=== PATIENT | male | born 1950 | race Caucasian/White ===

== ENCOUNTER 2023-09-05 09:40 | Outpatient (AMB) | payer MEDICARE, SELFPAY ==
[2023-09-05 09:46] VITALS: BP 140/80; PULSE 67; O2SAT 98; BMI 22.7
--- NOTE | 2023-09-05 09:46 | MHC.PC.OV ---
Vital Signs 09/05/23 09:46 Height 6 ft Weight 167 lb 6 oz BMI 22.7 BP 140/80 H Blood Pressure Location Lt brachial Position Sitting Pulse 67 Pulse Source Pulse Oximeter Pulse Oximetry (%) 98 Oxygen Delivery Method Room Air Intake Visit Reasons: HTN, hyperlipidemia Automotive Consultant Required: No Accompanied by: Self / Same As Patient Allergies terbinafine [Lamisil] Allergy (Unknown, Verified 09/05/23 10:22) unknown Medication List - Last Reconciled 09/05/23 by Efrain Hernandez MD blood pressure monitor As directed cholecalciferol (vitamin D3) 50 mcg PO DAILY multivitamin (Daily Multi-Vitamin tablet) 1 tab PO DAILY phytosterol-pantethine 300-100 mg (CholestOff Complete) caps PO Tobacco use date assessed: 09/05/23 Fall risk assessment: No Falls in past year Last assessed Fall Risk: 09/05/23 Dental Screening Dental Screen Date: 09/05/23 Did you have a dental visit in the last 12 months?: Yes Did you have a dental problem in the last 6 months where you did not have access to dental care?: No Was dental information given to patient?: Patient has dentist HPI HTN, hyperlipidemia HPI Details Patient comes in for his follow up visit States that he feels okay Sprained his right knee a few months ago but states that his knee is okay now - was following up with [facility] when he was having issues with his knee He currently denies any headaches or dizziness Denies any chest pains, no SOB No nausea/vomiting, no abdominal pain No change in bowel habits noted Had his follow up labs done at [facility] a few weeks ago - to discuss his results [facility] Medical History Urinary frequency Vitamin D deficiency GERD with esophagitis Pure hypercholesterolemia Normal colonoscopy Lumbar degenerative disc disease Hyperlipidemia Surgical History S/P right knee arthroscopy (~11/20/20) S/P medial meniscus repair of right knee Status post lumbar surgery Family History Other Family history non-contributory Social History Housing: House Alcohol intake: former Patient Tobacco Use Status: Former Tobacco user Tobacco use type: Cigarette e-Cigarette/Vaping Use: Never Used Second Hand Smoke Exposure: No Current occupational status: retired Cognitive needs: No Hearing needs: No Vision needs: No Questionnaire PHQ-9 Over the last 2 weeks, how often have you been bothered by any of the following problems? 1. Little interest or pleasure in doing things: not at all 2. Feeling down, depressed, or hopeless: not at all 3. Trouble falling or staying asleep, or sleeping too much: not at all 4. Feeling tired or having little energy: not at all 5. Poor appetite or overeating: not at all 6. Feeling bad about yourself - or that you are a failure or have let yourself or your family down: not at all 7. Trouble concentrating on things, such as reading the newspaper or watching television: not at all 8. Moving or speaking so slowly that other people could have noticed. Or the opposite - being so fidgety or restless that you have been moving around a lot more than usual: not at all 9. Thoughts that you would be better off or of hurting yourself in some way: not at all Total score: 0 Depression Screening Interpretation: Negative Depression Screening Done: Yes 72973 - PHQ-9 Billing: Yes Source: Developed by Drs. Anoop Koch, Nely Cm, Lucien Tyson and colleagues, with an educational riley from [employer]. Thrive Questionnaire Date Thrive assessed: 09/05/23 I am a: Patient What is your living situation today?: I have a steady place to live Within the past 12 months, did the food you bought not last and you didn't have the money to get more?: Never true Within the past 12 months, did you worry whether your food would run out before you got money to buy more?: Never true Do you have trouble paying for medicines?: No Do you have trouble getting transportation to medical appointments?: No Do you have trouble paying your heating and electricity bill?: No Do you have trouble taking care of your child, family member or friend?: No Do you have trouble with day-to-day activities such as bathing, preparing meals, shopping, managing finances, etc.?: No Are you currently unemployed and looking for a job?: No Are you interested in more education?: No Please select the resources that you would like help with: None Currently or been in a relationship where the following occur: no concerns reported AUDIT C Alcohol Use Questionnaire (AUDIT-C) 1. How often do you have a drink containing alcohol?: Never 3. How often do you have six or more drinks on one occasion?: Never Total Score: 0 Score Reviewed/Action Taken: Yes BACILIO-7 AMB Questionnaire BACILIO-7 Date BACILIO - 7 assessed: 09/05/23 Feeling nervous, anxious, or on edge: 0 = Not at all Not being able to stop or control worryin = Not at all Worrying too much about different things: 0 = Not at all Trouble relaxin = Not at all Being so restless that it is hard to sit still: 0 = Not at all Becoming easily annoyed or irritable: 0 = Not at all Feeling afraid as if something awful might happen: 0 = Not at all Total BACILIO-7 score (0-4 normal; 5-9 mild; 10-14 moderate; 15-21 severe): 0 Source: Developed by Drs. Anoop Koch, Nely Cm, Lucien Tyson and colleagues, with an educational riley from [employer]. Review of Systems Const Denies chills, Denies fatigue, Denies fever(s) and Denies headache(s) ENT Denies dysphagia, Denies dizziness, Denies otalgia, Denies headache(s), Denies neck pain, Denies odynophagia and Denies sore throat Card Denies chest pain, Denies rapid heart rate, Denies irregular heart rhythm, Denies palpitations and Denies dyspnea Resp Denies chest congestion, Denies cough, Denies dyspnea and Denies wheezing GI Denies abdominal pain, Denies constipation, Denies dysphagia, Denies heartburn, Denies diarrhea, Denies nausea, Denies odynophagia and Denies vomiting Denies hematuria, Denies difficulty urinating, Denies dysuria, Denies urinary frequency and Denies urinary urgency Musc Denies back pain, Denies arthralgias and Denies neck pain Skin/Breast Denies rash Neuro Denies dizziness, Denies headache(s) and Denies paresthesias Endo Denies fatigue and Denies palpitations Aller/Immun Denies wheezing Physical exam (Primary Care) Vital Signs: Last Vital Signs Pulse 67 09/05/23 09:46 BP 140/80 H 09/05/23 09:46 Pulse Ox 98 09/05/23 09:46 Oxygen Delivery Method Room Air 09/05/23 09:46 BMI result Body Mass Index 22.7 Tobacco/Smoking Status: Tobacco use Status Tobacco use date assessed 09/05/23 09/05/23 09:51 Patient Tobacco Use Status Former Tobacco user 09/05/23 09:51 Tobacco use type Cigarette 09/05/23 09:51 e-Cigarette/Vaping Use Never Used 09/05/23 09:51 PHQ-9: PHQ-9 Score PHQ-9: Total score 0 09/05/23 10:23 Depression Screening Interpretation: Negative Thrive Assessment: Date of Thrive Assessment Date Thrive assessed 09/05/23 09/05/23 09:51 Currently or been in a relationship where the following occur: no concerns reported Const General: no acute distress and alert HENMT Ears: TM's normal bilaterally and EAC's normal Throat: Yes posterior oropharynx normal and Yes tonsils normal (no TP congestion) Neck Neck: Yes no lymphadenopathy and Yes supple Thyroid: Thyroid normal Resp Auscultation: clear to auscultation bilaterally, no rales and no wheezes Cardio Rate: regular rate Rhythm: regular rhythm Heart sounds: no murmurs GI Palpation (GI): Soft to palpation and nontender Auscultation: normal bowel sounds General: Yes no CVA tenderness Back/Spine/Pelvis Back: no CVA tenderness Thoracic/Lumbar Spine: thoracic and lumbar spine normal to inspection Skin Rashes: no rashes Extrem General: Yes no clubbing, cyanosis or edema Office Procedures Flu Questionnaire Does the patient have a severe egg allergy?: No Immunizations flu vacc [id number] 6mos up(PF) 60 mcg(15 mcgx4)/0.5 mL IM syringe Performing Provider: Efrain Hernandez MD [facility] Documented (not given) by: Yobani Recinos on 09/05/23 10:34 Reason Not Given: Not Given Assessment and Plan Assessment & Plan (1) Pure hypercholesterolemia: Code(s): E78.00 - Pure hypercholesterolemia, unspecified Plan: Results of his labs done at [facility] a few weeks ago reviewed and discussed with patient Is advised that his cholesterol numbers have improved significantly from previous with diet modification Reinforced low cholesterol diet Patient also scored [address] done a few months ago Will have him recheck his labs and fasting lipids in 6 months for follow up (2) Elevated blood pressure reading: Code(s): R03.0 - Elevated blood-pressure reading, without diagnosis of hypertension Plan: Reinforced low sodium diet - goal is systolic BP of at least 120 to 130 mm or less States that his blood pressure has been running much lower since he quit drinking coffee completely a few weeks ago Is instructed to continue monitoring his blood pressure regularly (3) Vitamin D deficiency: Code(s): E55.9 - Vitamin D deficiency, unspecified Plan: Is advised that his Vitamin D level is low on his recent labs - patient admits that he does forget to take his Vitamin D at times Continue Vitamin D3 2000 units QD Will recheck his Vitamin D level in 6 months for follow up (4) GERD with esophagitis: Code(s): K21.00 - Gastro-esophageal reflux disease with esophagitis, without bleeding Qualifiers: Esophagitis bleeding: without hemorrhage Qualified Code(s): K21.00 - Gastro-esophageal reflux disease with esophagitis, without bleeding Plan: Dietary restrictions reinforced Plan To return in 6 months for his annual physical examination Orders: Orders UA CC w/rflx Micro + Cult 6 Months R30.0 - Dysuria Influenza [id number] Immunization Today Z23 - Encounter for immunization Complete Blood Count Auto Diff 6 Months I10 - Essential (primary) hypertension Comprehensive [place]. Panel Fast 6 Months E78.00 - Pure hypercholesterolemia, unspecified Lipid Panel 6 Months E78.00 - Pure hypercholesterolemia, unspecified TSH reflex Free T4 6 Months E78.00 - Pure hypercholesterolemia, unspecified Vitamin D 25-OH Total 6 Months E55.9 - Vitamin D deficiency, unspecified Prostate Specific Antigen Scr 6 Months Z00.00 - Encounter for general adult medical examination without abnormal findings Coding Level of Care Code Est Pt Level 4 (22591) Diagnoses Pure hypercholesterolemia E78.00 Elevated blood pressure reading R03.0 Vitamin D deficiency E55.9 Gastroesophageal reflux disease with esophagitis without hemorrhage K21.00 Esophagitis bleeding: without hemorrhage
== END 2023-09-05 11:09 | disposition home or self-care (01) ==
PROVIDERS: PCP Internal Medicine; Visit Provider Internal Medicine
DX: E78.00 Pure hypercholesterolemia, unspecified (principal); R03.0 Elevated blood-pressure reading, without diagnosis of hypertension; E55.9 Vitamin D deficiency, unspecified; K21.00 Gastro-esophageal reflux disease with esophagitis, without bleeding
CPT/HCPCS: 99214

== ENCOUNTER 2024-01-04 10:17 | Outpatient (AMB) | payer MEDICARE, SELFPAY ==
--- NOTE | 2024-01-04 10:33 | MHC.PC.OV ---
Vital Signs 01/04/24 10:34 Height 6 ft Weight 170 lb 2 oz BMI 23.1 BP 140/100 H Blood Pressure Location Lt brachial Position Sitting Pulse 57 Pulse Source Pulse Oximeter Pulse Oximetry (%) 98 Oxygen Delivery Method Room Air Intake Visit Reasons: pe Chief Recordist Required: No Accompanied by: Self / Same As Patient Allergies terbinafine [Lamisil] Allergy (Unknown, Verified 01/04/24 11:23) unknown Medication List - Last Reconciled 01/04/24 by Efrain Hernandez MD blood pressure monitor As directed cholecalciferol (vitamin D3) 50 mcg PO DAILY multivitamin (Daily Multi-Vitamin tablet) 1 tab PO DAILY phytosterol-pantethine 300-100 mg (CholestOff Complete) 1 cap PO DAILY Tobacco use date assessed: 01/04/24 Fall risk assessment: 1 Fall in past year Last assessed Fall Risk: 01/04/24 Dental Screening Dental Screen Date: 01/04/24 Did you have a dental visit in the last 12 months?: Yes Did you have a dental problem in the last 6 months where you did not have access to dental care?: No Was dental information given to patient?: Patient has dentist HPI pe HPI Details Patient comes in today for his annual physical examination States that he feels okay except for his right shoulder, which has been bothering him (pain) for a while now Recalls that he fell onto his shoulder back on 11/03/2023 when someone ran into him on skates and this is when his shoulder started hurting He denies any headaches or dizziness Denies any chest pains, no SOB No nausea/vomiting, no abdominal pain No change in bowel habits noted He denies any acute urinary symptoms States that his systolic BP usually runs ~130 mm at home He was not able to get his previously ordered follow up labs done yet - states that he will try to get these done JAJA He is up-to-date with his colon cancer screening - will be due for repeat colonoscopy in a couple of years (2025) PFSH Medical History Urinary frequency Vitamin D deficiency GERD with esophagitis Pure hypercholesterolemia Normal colonoscopy Lumbar degenerative disc disease Hyperlipidemia Surgical History S/P right knee arthroscopy (~12/31/20) S/P medial meniscus repair of right knee Status post lumbar surgery Family History Other Family history non-contributory Social History Housing: House Alcohol intake: former Patient Tobacco Use Status: Former Tobacco user Tobacco use type: Cigarette e-Cigarette/Vaping Use: Never Used Second Hand Smoke Exposure: No Current occupational status: retired Cognitive needs: No Hearing needs: No Vision needs: No Questionnaire PHQ-9 Over the last 2 weeks, how often have you been bothered by any of the following problems? 1. Little interest or pleasure in doing things: not at all 2. Feeling down, depressed, or hopeless: not at all 3. Trouble falling or staying asleep, or sleeping too much: not at all 4. Feeling tired or having little energy: not at all 5. Poor appetite or overeating: not at all 6. Feeling bad about yourself - or that you are a failure or have let yourself or your family down: not at all 7. Trouble concentrating on things, such as reading the newspaper or watching television: not at all 8. Moving or speaking so slowly that other people could have noticed. Or the opposite - being so fidgety or restless that you have been moving around a lot more than usual: not at all 9. Thoughts that you would be better off or of hurting yourself in some way: not at all Total score: 0 Depression Screening Interpretation: Negative Depression Screening Done: Yes 86519 - PHQ-9 Billing: Yes Source: Developed by Drs. Anoop Koch, Nely Cm, Lucien Tyson and colleagues, with an educational riley from [employer]. Thrive Questionnaire Date Thrive assessed: 01/04/24 I am a: Patient What is your living situation today?: I have a steady place to live Within the past 12 months, did the food you bought not last and you didn't have the money to get more?: Never true Within the past 12 months, did you worry whether your food would run out before you got money to buy more?: Never true Do you have trouble paying for medicines?: No Do you have trouble getting transportation to medical appointments?: No Do you have trouble paying your heating and electricity bill?: No Do you have trouble taking care of your child, family member or friend?: No Do you have trouble with day-to-day activities such as bathing, preparing meals, shopping, managing finances, etc.?: No Are you currently unemployed and looking for a job?: No Are you interested in more education?: No Please select the resources that you would like help with: None Currently or been in a relationship where the following occur: no concerns reported THRIVE Score: 0 AUDIT C Alcohol Use Questionnaire (AUDIT-C) 1. How often do you have a drink containing alcohol?: Never 3. How often do you have six or more drinks on one occasion?: Never Total Score: 0 Score Reviewed/Action Taken: Yes BACILIO-7 AMB Questionnaire BACILIO-7 Date BACILIO - 7 assessed: 01/04/24 Feeling nervous, anxious, or on edge: 0 = Not at all Not being able to stop or control worryin = Not at all Worrying too much about different things: 0 = Not at all Trouble relaxin = Not at all Being so restless that it is hard to sit still: 0 = Not at all Becoming easily annoyed or irritable: 0 = Not at all Feeling afraid as if something awful might happen: 0 = Not at all Total BACILIO-7 score (0-4 normal; 5-9 mild; 10-14 moderate; 15-21 severe): 0 Source: Developed by Drs. Anoop Koch, Nely Cm, Lucien Tyson and colleagues, with an educational riley from [employer]. Review of Systems Const Denies chills, Denies fatigue, Denies fever(s), Denies headache(s), Denies malaise and Denies weakness Eyes Denies blurry vision, Denies change in vision, Denies irritation and Denies itchy eyes ENT Denies dysphagia, Denies dizziness, Denies otalgia, Denies headache(s), Denies nasal congestion, Denies neck pain, Denies odynophagia and Denies sore throat Card Denies chest pain, Denies rapid heart rate, Denies irregular heart rhythm, Denies palpitations and Denies dyspnea Resp Denies chest congestion, Denies cough, Denies dyspnea and Denies wheezing GI Denies abdominal pain, Denies bloating, Denies constipation, Denies dysphagia, Denies heartburn, Denies diarrhea, Denies nausea, Denies odynophagia and Denies vomiting Denies hematuria, Denies difficulty urinating, Denies dysuria, Denies urinary frequency and Denies urinary urgency Musc Denies back pain, Reports arthralgias (right shoulder), Denies joint swelling, Denies muscle weakness and Denies neck pain Skin/Breast Denies change in pigmentation, Denies lesions, Denies rash and Denies unusual bruising Neuro Denies dizziness, Denies headache(s), Denies paresthesias and Denies weakness Endo Denies fatigue and Denies palpitations Aller/Immun Denies itchy eyes and Denies wheezing Physical exam (Primary Care) Vital Signs: Last Vital Signs Pulse 57 01/04/24 10:34 BP 140/100 H 01/04/24 10:34 Pulse Ox 98 01/04/24 10:34 Oxygen Delivery Method Room Air 01/04/24 10:34 BMI result Body Mass Index 23.1 Tobacco/Smoking Status: Tobacco use Status Tobacco use date assessed 01/04/24 01/04/24 10:39 Patient Tobacco Use Status Former Tobacco user 01/04/24 10:39 Tobacco use type Cigarette 01/04/24 10:39 e-Cigarette/Vaping Use Never Used 01/04/24 10:39 PHQ-9: PHQ-9 Score PHQ-9: Total score 0 01/04/24 11:11 Depression Screening Interpretation: Negative Thrive Assessment: Date of Thrive Assessment Date Thrive assessed 01/04/24 01/04/24 10:39 Currently or been in a relationship where the following occur: no concerns reported Const General: no acute distress, alert and awake Orientation/consciousness: patient oriented x3 HENMT Head: Yes normocephalic and Yes atraumatic Ears: external ears normal, TM's normal bilaterally and EAC's normal General nose exam: No nasal discharge present Face and sinus: Yes normal facial exam and Yes sinuses nontender Teeth and gingiva: dentition normal Throat: Yes posterior oropharynx normal and Yes tonsils normal (no TP congestion) Eyes Eyelids: Yes eyelids normal Conjunctivae: conjunctivae normal Pupils: Equal, round and reactive pupils present EOM: EOMs intact bilaterally Neck Neck: Yes no lymphadenopathy and Yes supple Thyroid: Thyroid normal Resp Auscultation: clear to auscultation bilaterally, no rales and no wheezes Cardio Rate: regular rate Rhythm: regular rhythm Heart sounds: no murmurs GI Palpation (GI): Soft to palpation, nontender and No hepatosplenomegaly present Auscultation: normal bowel sounds General: Yes no CVA tenderness Back/Spine/Pelvis Back: no CVA tenderness Thoracic/Lumbar Spine: thoracic and lumbar spine normal to inspection Skin Lesions: no lesions Rashes: no rashes Neuro General: patient oriented x3, moves all extremities, no focal motor deficits and CN's II-XI intact bilaterally Cranial nerves: Yes Equal, round and reactive pupils present Cognition (Neuro): normal cognition Gait exam (Neuro): Normal gait present Extrem General: Yes no clubbing, cyanosis or edema Assessment and Plan Assessment & Plan (1) Annual physical exam: Code(s): Z00.00 - Encounter for general adult medical examination without abnormal findings Plan: Check labs [facility] - labs were previously ordered and patient states that he still has his printed orders and will get them done at [facility] labs [facility] (2) Pure hypercholesterolemia: Code(s): E78.00 - Pure hypercholesterolemia, unspecified Plan: His previous cholesterol numbers have improved significantly with diet modification Will have him recheck his labs and fasting lipids [facility] for follow up Reinforced low cholesterol diet Patient scored [address] done last year (3) Elevated blood pressure reading: Code(s): R03.0 - Elevated blood-pressure reading, without diagnosis of hypertension Plan: Reinforced low sodium diet - goal is systolic BP of at least 120 to 130 mm or less States that his blood pressure has been running much lower since he quit drinking coffee completely a few weeks ago He is reminded to continue monitoring his blood pressure regularly (4) Vitamin D deficiency: Code(s): E55.9 - Vitamin D deficiency, unspecified Plan: Continue Vitamin D3 2000 units QD Will recheck his Vitamin D level [facility] for follow up (5) GERD with esophagitis: Code(s): K21.00 - Gastro-esophageal reflux disease with esophagitis, without bleeding Qualifiers: Esophagitis bleeding: without hemorrhage Qualified Code(s): K21.00 - Gastro-esophageal reflux disease with esophagitis, without bleeding Plan: Dietary restrictions reinforced (6) Right shoulder pain: Code(s): M25.511 - Pain in right shoulder Qualifiers: Chronicity: unspecified Qualified Code(s): M25.511 - Pain in right shoulder Plan: He is S/P right shoulder surgery with [facility] Follow up with [facility] as scheduled Plan Follow up in 6 months Coding Level of Care Code Est Pt Prev Care >65y(57304) Diagnoses Annual physical exam Z00.00 Pure hypercholesterolemia E78.00 Elevated blood pressure reading R03.0 Vitamin D deficiency E55.9 Gastroesophageal reflux disease with esophagitis without hemorrhage K21.00 Esophagitis bleeding: without hemorrhage Right shoulder pain, unspecified chronicity M25.511 Chronicity: unspecified
[2024-01-04 10:34] VITALS: BP 140/100; PULSE 57; O2SAT 98; BMI 23.1
== END 2024-01-04 11:27 | disposition home or self-care (01) ==
PROVIDERS: PCP Internal Medicine; Visit Provider Internal Medicine
DX: Z00.00 Encounter for general adult medical examination without abnormal findings (principal); E78.00 Pure hypercholesterolemia, unspecified; R03.0 Elevated blood-pressure reading, without diagnosis of hypertension; E55.9 Vitamin D deficiency, unspecified; K21.00 Gastro-esophageal reflux disease with esophagitis, without bleeding; M25.511 Pain in right shoulder
CPT/HCPCS: 99397

== ENCOUNTER 2024-10-12 15:23 | Outpatient (AMB) | payer MEDICARE, SELFPAY ==
--- NOTE | 2024-10-12 15:28 | A.OFFPC_ITS ---
Vital Signs 10/12/24 15:29 Height 6 ft Weight 170 lb BMI 23.1 BP 148/74 H Blood Pressure Location Lt brachial Position Sitting Pulse 58 Pulse Source Pulse Oximeter Pulse Oximetry (%) 98 Oxygen Delivery Method Room Air Intake Visit Reasons: follow up Intake Note: Patient is here to follow up on HTN. Commissioner Of Conciliation Required: No Accompanied by: Self / Same As Patient Allergies terbinafine [Lamisil] Allergy (Unknown, Verified 10/12/24 15:50) unknown Medication List - Last Reconciled 10/12/24 by Efrain Hernandez MD blood pressure monitor As directed cholecalciferol (vitamin D3) 50 mcg PO DAILY multivitamin (Daily Multi-Vitamin tablet) 1 tab PO DAILY phytosterol-pantethine 300-100 mg (CholestOff Complete) 1 cap PO DAILY Tobacco use date assessed: 01/04/24 Fall risk assessment: No Falls in past year Last assessed Fall Risk: 10/12/24 Dental Screening Dental Screen Date: 01/04/24 HPI follow up HPI Details Patient comes in today for his follow up visit States that he feels okay He denies any headaches or dizziness Denies any chest pains, no SOB No nausea/vomiting, no abdominal pain No change in bowel habits noted He again brought in his BP log for July 2024 - log shows systolic BP trending higher in the morning but no higher than 145 to 151 mm and her systolic BP in the late afternoon run from 121 to 142 mm He would like to quickly go over the results of his labs done back in January 2024 at [facility] He would also like to get his flu shot today [facility] Medical History (Updated 10/13/24 @ 15:23 by Efrain Hernandez MD) Primary osteoarthritis, right shoulder Urinary frequency Vitamin D deficiency GERD with esophagitis Pure hypercholesterolemia Normal colonoscopy Lumbar degenerative disc disease Hyperlipidemia Surgical History S/P right knee arthroscopy (~11/20/20) S/P medial meniscus repair of right knee Status post lumbar surgery Family History Other Family history non-contributory Social History Housing: House Alcohol intake: former Patient Tobacco Use Status: Former Tobacco user Tobacco use type: Cigarette e-Cigarette/Vaping Use: Never Used Second Hand Smoke Exposure: No service: No Current occupational status: retired Cognitive needs: No Hearing needs: No Vision needs: No Questionnaire PHQ-9 Over the last 2 weeks, how often have you been bothered by any of the following problems? Depression Screening Interpretation: Negative Depression Screening Done: Yes Source: Developed by Nely Dickerson Kurt Kroenke and colleagues, with an educational riley from [employer]. Thrive Questionnaire Date Thrive assessed: 01/04/24 THRIVE Score: 0 BACILIO-7 AMB Questionnaire BACILIO-7 Date BACILIO - 7 assessed: 01/04/24 Source: Developed by Drs. Anoop Koch, Lucien Ewing and colleagues, with an educational riley from [employer]. Review of Systems Const Denies chills, Denies fatigue, Denies fever(s) and Denies headache(s) ENT Denies dysphagia, Denies dizziness, Denies otalgia, Denies headache(s), Denies neck pain, Denies odynophagia and Denies sore throat Card Denies chest pain, Denies irregular heart rhythm, Denies palpitations and Denies dyspnea Resp Denies chest congestion, Denies cough and Denies dyspnea GI Denies abdominal pain, Denies constipation, Denies dysphagia, Denies heartburn, Denies diarrhea, Denies nausea, Denies odynophagia and Denies vomiting Denies difficulty urinating, Denies dysuria and Denies urinary frequency Musc Denies back pain, Reports arthralgias (right shoulder) and Denies neck pain Skin/Breast Denies rash Neuro Denies dizziness, Denies headache(s) and Denies paresthesias Endo Denies fatigue and Denies palpitations Physical exam (Primary Care) Vital Signs: Last Vital Signs Pulse 58 10/12/24 15:29 BP 148/74 H 10/12/24 15:29 Pulse Ox 98 10/12/24 15:29 Oxygen Delivery Method Room Air 10/12/24 15:29 BMI result Body Mass Index 23.1 Tobacco/Smoking Status: Tobacco use Status Tobacco use date assessed 01/04/24 10/12/24 15:33 Patient Tobacco Use Status Former Tobacco user 10/12/24 15:33 Tobacco use type Cigarette 10/12/24 15:33 e-Cigarette/Vaping Use Never Used 10/12/24 15:33 Depression Screening Interpretation: Negative Thrive Assessment: Date of Thrive Assessment Date Thrive assessed 01/04/24 10/12/24 15:33 Const General: no acute distress and alert HENMT Ears: TM's normal bilaterally and EAC's normal Throat: Yes posterior oropharynx normal and Yes tonsils normal (no TP congestion) Neck Neck: Yes no lymphadenopathy and Yes supple Thyroid: Thyroid normal Resp Auscultation: clear to auscultation bilaterally, no rales and no wheezes Cardio Rate: regular rate Rhythm: regular rhythm Heart sounds: no murmurs GI Palpation (GI): Soft to palpation and nontender Auscultation: normal bowel sounds General: Yes no CVA tenderness Back/Spine/Pelvis Back: no CVA tenderness Thoracic/Lumbar Spine: No lumbar spinal tenderness Skin Rashes: no rashes Extrem General: Yes no clubbing, cyanosis or edema Office Procedures Flu Questionnaire Does the patient have a severe egg allergy?: No Does the patient have severe life threatening allergies?: No Does the patient have a fever or illness today?: No Has the patient ever had Guillain-Newberry Syndrome?: No Has the patient ever had any past reaction to a flu shot?: No Immunizations Fluarix Triv [id number] (PF) 45 mcg (15 mcg x 3)/0.5 mL IM syringe Performing Provider: Efrain Hernandez MD [facility]forming [facility] [place] [facility] Administered by: CELESTINA Cintron on 10/12/24 15:42 Dose Route Admin Location Dispensed Lot Number Expiration Date [facility] Archeologist Classical 0.5 mL IM Right Deltoid 0.5 mL [id number] 05/20/25 [id number] Secure Software VIS Given Date VIS Provided VIS Publication Date 10/12/24 Single Vaccine 21 Eligibility Eligibility Date Funding Source Not [facility] [employer] Eligible 10/12/24 Private Coding Level of Care Code Est Pt Level 4 (71935) Diagnoses Pure hypercholesterolemia E78.00 Elevated blood pressure reading R03.0 Vitamin D deficiency E55.9 Gastroesophageal reflux disease with esophagitis without hemorrhage K21.00 Esophagitis bleeding: without hemorrhage Primary osteoarthritis, right shoulder M19.011 Assessment & Plan Assessment & Plan (1) Pure hypercholesterolemia: Code(s): E78.00 - Pure hypercholesterolemia, unspecified Category: Medical Plan: Results of his labs done at [facility] back in December 2023 reviewed and discussed with patient Reinforced low cholesterol diet Patient scored [address] done last year, which is low Will have him recheck his labs and fasting lipids in December 2024 BEFORE he returns for his annual physical examination (2) Elevated blood pressure reading: Code(s): R03.0 - Elevated blood-pressure reading, without diagnosis of hypertension Category: Medical Plan: Reinforced low sodium diet - goal is systolic BP of at least 130 to 140 mm or less His blood pressure readings at home mostly trend higher in the morning but his systolic BP does not go any higher than 145 to 151 mm and in the late afternoon runs generally from 121 to 142 mm He is reminded to continue monitoring his blood pressure regularly for now (3) Vitamin D deficiency: Code(s): E55.9 - Vitamin D deficiency, unspecified Category: Medical Plan: Continue Vitamin D3 2000 units QD (4) GERD with esophagitis: Code(s): K21.00 - Gastro-esophageal reflux disease with esophagitis, without bleeding Category: Medical Qualifiers: Esophagitis bleeding: without hemorrhage Qualified Code(s): K21.00 - Gastro-esophageal reflux disease with esophagitis, without bleeding Plan: Dietary restrictions reinforced (5) Primary osteoarthritis, right shoulder: Code(s): M19.011 - Primary osteoarthritis, right shoulder Category: Medical Plan: S/p arthroscopic shoulder surgery with [facility] earlier this year (2023) Follow up with orthopedics as scheduled Plan As requested, flu vaccine given to patient today To return as scheduled in December 2024 for his annual physical examination Orders: Orders Complete Blood Count Auto Diff 12/22/24 D64.9 - Anemia, unspecified Comprehensive [place]. Panel Fast 12/22/24 E78.00 - Pure hypercholesterolemia, unspecified Lipid Panel 12/22/24 E78.00 - Pure hypercholesterolemia, unspecified Influenza Immunization 10/12/24 Z23 - Encounter for immunization TSH reflex Free T4 12/22/24 E78.00 - Pure hypercholesterolemia, unspecified UA CC w/rflx Micro + Cult 12/22/24 R30.0 - Dysuria Vitamin D 25-OH Total 12/22/24 E55.9 - Vitamin D deficiency, unspecified Prostate Specific Antigen 12/22/24 N40.0 - Benign prostatic hyperplasia without lower urinary tract symptoms
[2024-10-12 15:29] VITALS: BP 148/74; PULSE 58; O2SAT 98; BMI 23.1
== END 2024-10-12 16:01 | disposition home or self-care (01) ==
PROVIDERS: PCP Internal Medicine; Visit Provider Internal Medicine
DX: Z23 Encounter for immunization (principal)

== ENCOUNTER → 2024-10-12 15:23 | Outpatient (BNVA) | payer MEDICARE, SELFPAY | PROVIDERS: PCP Internal Medicine; Visit Provider Internal Medicine | DX: Z23 Encounter for immunization (principal); E78.00 Pure hypercholesterolemia, unspecified; R03.0 Elevated blood-pressure reading, without diagnosis of hypertension; E55.9 Vitamin D deficiency, unspecified; K21.00 Gastro-esophageal reflux disease with esophagitis, without bleeding; M19.011 Primary osteoarthritis, right shoulder | CPT/HCPCS: 90471; 90656; 99212 ==

== ENCOUNTER 2024-12-28 07:43 | Outpatient (REF) | payer MEDICARE, SELFPAY ==
--- OUTSIDE RECORDS SUMMARY | 2024-12-28 07:45 | XMS_ITS | Clinical Summary ---
Author Organization Formerly [facility] Address [address] [place] [address] Care Team Providers Care Sample Mounter Name Role Phone Unavailable Primary Care Provider Unavailabl e Social History Tobacco Use Types Packs/Day Years Used Date Smoking Tobacco: Never Assessed Sex and Gender Information Value Date Recorded Sex Assigned at Not on file Gender Identity Not on file Sexual Orientation Not on file Plan of Treatment Health Maintenance Due Date Last Done Comments Hepatitis C Virus Screening 1950 DTaP/Tdap/Td Vaccines (1 - Tdap) 1970 Pneumococcal Vaccines 50+ (1 of 1 - PCV) 2001 Zoster (Shingles) Vaccine (1 of 2) 2001 COVID-19 Vaccine ( - 2023-2 5 season) 2024 RSV Vaccine 60 years and old er and Patients (1 - 1-dose 75+ series) 2026 Hepatitis B Vaccines Aged Out No long er eligible based on patient's age to complete this topic
[2024-12-28 07:59] LABS: MANUAL DIFF FLAG NO
[2024-12-28 08:22] LABS: Basophils Percent Auto 0.2 % (0-2); Eosinophils Absolute Auto 0.1 X10*3/uL (0.0-0.4); Eosinophils Percent Auto 1.4 % (0-4); Hematocrit 44.1 % (42.0-52.0); Hemoglobin 14.7 g/dl (14.0-18.0); Imm Gran Abs Auto 0.01 X10*3/uL (0.00-0.03); Imm Gran Pct Auto 0.2 % (0.0-0.4); Lymphocytes Absolute Auto 1.4 X10*3/uL (1.2-4.9); Lymphocytes Percent Auto 28.3 % (20-40); Mean Corpuscular HGB Conc 33.3 g/dl (31.0-36.0); Mean Corpuscular Hemoglobin 31.1 pg (27.0-33.0); Mean Corpuscular Volume 93.4 fL (80.0-98.0); Mean Platelet Volume 10.6 fL (9.4-12.4); Monocytes Absolute Auto 0.4 X10*3/uL (0.1-1.2); Monocytes Percent Auto 7.8 % (2-11); Neutrophils Percent Auto 62.1 % (45-73); Platelet Count 241 X10*3/uL (160-400); Red Blood Count 4.72 X10*6/uL (4.60-5.80); Red Cell Distribution Width 13.2 % (11.0-16.0); White Blood Count 4.9 X10*3/uL (4.8-10.8)
[2024-12-28 08:47] LABS: Appearance Urine Clear; Color Urine Yellow; Glucose Urine UA Negative (Negative); Leukocyte Esterase Urine Trace (Negative); Nitrite Urine Negative (Negative); UMIC TRIGGER UACC YES; Urine Blood Negative (Negative); Urine Ketones Trace mg/dL (Negative); Urine Protein Negative (Neg-Trace)
[2024-12-28 08:53] LABS: Bacteria Urine None Seen (None Seen); Hyaline Casts Urine 0-2 /LPF (0-2); RBC Urine 0-2 /HPF (0-2); Squamous Epithelial Cell Urine 0-2 /HPF (0-2); WBC Urine 0-5 /HPF (0-5)
[2024-12-28 09:07] LABS: Alanine Aminotransferase 25 U/L (0-40); Alkaline Phosphatase 98 U/L (39-117); Anion Gap 10 (12-20); Aspartate Amino Transferase 24 U/L (5-37); Bilirubin Total 0.9 mg/dL (0.0-1.0); Blood Urea Nitrogen 13 mg/dL (9-16); Carbon Dioxide 26 mmol/L (22-29); Chloride 107 mmol/L (96-108); Cholesterol 197 mg/dL (<200); Estimated Glomerular Filt Rate > 60; Glucose Fasting 93 mg/dL (60-99); HDL Cholesterol 44 mg/dL (>40); LDL Cholesterol Calculated 129 mg/dL (<100); Potassium 4.4 mmol/L (3.3-5.1); Sodium 139 mmol/L (135-145); Total Protein 6.6 g/dL (6.5-8.0); Triglycerides 121 mg/dL (<150)
[2024-12-28 09:16] LABS: Prostate Specific Antigen Scr 2.52 ng/mL (<0.05-4.0)
[2024-12-28 09:24] LABS: TSH reflex Free T4 1.63 uIU/mL (0.32-4.0); Vitamin D 25-OH Total 23.5 ng/mL (>30)
== END 2024-12-28 07:44 | disposition home or self-care (01) ==
LOC: HO.LAB 07:43
PROVIDERS: PCP Internal Medicine; Visit Provider Internal Medicine
DX: Z00.00 Encounter for general adult medical examination without abnormal findings (principal); I10 Essential (primary) hypertension; E78.00 Pure hypercholesterolemia, unspecified; E55.9 Vitamin D deficiency, unspecified; R30.0 Dysuria; Z12.5 Encounter for screening for malignant neoplasm of prostate
CPT/HCPCS: 36415; 80053; 80061; 81001; 82306; 84153; 84443; 85025

== ENCOUNTER 2025-01-08 13:07 | Outpatient (AMB) | payer MEDICARE, SELFPAY ==
--- NOTE | 2025-01-08 13:12 | MHC.PC.OV ---
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: No Accompanied by: Self / Same As Patient Allergies terbinafine [Lamisil] Allergy (Unknown, Verified 01/08/25 13:36) unknown Medication List - Last Reconciled 01/08/25 by Efrain Hernandez MD blood pressure monitor As directed cholecalciferol (vitamin D3) 50 mcg PO DAILY multivitamin (Daily Multi-Vitamin tablet) 1 tab PO DAILY phytosterol-pantethine 300-100 mg (CholestOff Complete) 1 cap PO DAILY Tobacco use date assessed: 01/08/25 Fall risk assessment: No Falls in past year Last assessed Fall Risk: 01/08/25 Dental Screening Dental Screen Date: 01/08/25 Did you have a dental visit in the last 12 months?: Yes Did you have a dental problem in the last 6 months where you did not have access to dental care?: No Was dental information given to patient?: Patient has dentist HPI annual exam HPI Details Patient comes in today for his annual physical examination States that he feels okay and that he has been very active this past winter skiing and ice skating 5-6 days a week He denies any headaches or dizziness Denies any chest pains, no SOB No nausea/vomiting, no abdominal pain No change in bowel habits noted He denies any acute urinary symptoms Patient used to take Sildenafil PRN but recently heard about [employer] Salguero online and is wondering if it is safe to take He had his follow up labs done a couple of weeks ago - to discuss his results He is up-to-date with his colon cancer screening - he last had his colonoscopy done in 2015 and will be due his repeat colonoscopy next year (2025) [facility] Medical History (Updated 01/14/25 @ 02:35 by Efrain Hernandez MD) Primary osteoarthritis, right shoulder Urinary frequency Vitamin D deficiency GERD with esophagitis Pure hypercholesterolemia Normal colonoscopy Lumbar degenerative disc disease Hyperlipidemia Surgical History (Updated 01/08/25 @ 14:00 by Efrain Hernandez MD) History of colonoscopy S/P right knee arthroscopy (~12/31/20) S/P medial meniscus repair of right knee Status post lumbar surgery Family History Other Family history non-contributory Social History Housing: House Alcohol intake: former Patient Tobacco Use Status: Former Tobacco user Tobacco use type: Cigarette e-Cigarette/Vaping Use: Never Used Second Hand Smoke Exposure: No service: No Current occupational status: retired Cognitive needs: No Hearing needs: No Vision needs: No Questionnaire PHQ-9 Over the last 2 weeks, how often have you been bothered by any of the following problems? 1. Little interest or pleasure in doing things: not at all 2. Feeling down, depressed, or hopeless: not at all 3. Trouble falling or staying asleep, or sleeping too much: not at all 4. Feeling tired or having little energy: not at all 5. Poor appetite or overeating: not at all 6. Feeling bad about yourself - or that you are a failure or have let yourself or your family down: not at all 7. Trouble concentrating on things, such as reading the newspaper or watching television: not at all 8. Moving or speaking so slowly that other people could have noticed. Or the opposite - being so fidgety or restless that you have been moving around a lot more than usual: not at all 9. Thoughts that you would be better off or of hurting yourself in some way: not at all Total score: 0 Depression Screening Interpretation: Negative Depression Screening Done: Yes 29686 - PHQ-9 Billing: Yes Source: Developed by Drs. Anoop Koch, Nely Cm, Lucien Tyson and colleagues, with an educational riley from [employer]. Thrive Questionnaire Date Thrive assessed: 01/08/25 I am a: Patient What is your living situation today?: I have a steady place to live Within the past 12 months, did the food you bought not last and you didn't have the money to get more?: Never true Within the past 12 months, did you worry whether your food would run out before you got money to buy more?: Never true Do you have trouble paying for medicines?: No Do you have trouble getting transportation to medical appointments?: No Do you have trouble paying your heating and electricity bill?: No Do you have trouble taking care of your child, family member or friend?: No Do you have trouble with day-to-day activities such as bathing, preparing meals, shopping, managing finances, etc.?: No Are you currently unemployed and looking for a job?: No Are you interested in more education?: No Please select the resources that you would like help with: None Currently or been in a relationship where the following occur: No concerns reported THRIVE Score: 0 AUDIT C Alcohol Use Questionnaire (AUDIT-C) 1. How often do you have a drink containing alcohol?: Never 3. How often do you have six or more drinks on one occasion?: Never Total Score: 0 Score Reviewed/Action Taken: Yes BACILIO-7 AMB Questionnaire BACILIO-7 Date BACILIO - 7 assessed: 01/08/25 Feeling nervous, anxious, or on edge: 0 = Not at all Not being able to stop or control worryin = Not at all Worrying too much about different things: 0 = Not at all Trouble relaxin = Not at all Being so restless that it is hard to sit still: 0 = Not at all Becoming easily annoyed or irritable: 0 = Not at all Feeling afraid as if something awful might happen: 0 = Not at all Total BACILIO-7 score (0-4 normal; 5-9 mild; 10-14 moderate; 15-21 severe): 0 Source: Developed by Drs. Anoop Koch, Nely Cm, Lucien Tyson and colleagues, with an educational riley from [employer]. Review of Systems Const Denies chills, Denies fatigue, Denies fever(s), Denies headache(s), Denies malaise and Denies weakness Eyes Denies blurry vision, Denies change in vision, Denies irritation and Denies itchy eyes ENT Denies dysphagia, Denies dizziness, Denies otalgia, Denies headache(s), Denies nasal congestion, Denies neck pain, Denies odynophagia and Denies sore throat Card Denies chest pain, Denies rapid heart rate, Denies irregular heart rhythm, Denies palpitations and Denies dyspnea Resp Denies chest congestion, Denies cough, Denies dyspnea and Denies wheezing GI Denies abdominal pain, Denies bloating, Denies constipation, Denies dysphagia, Denies heartburn, Denies diarrhea, Denies nausea, Denies odynophagia and Denies vomiting Denies hematuria, Denies difficulty urinating, Denies dysuria, Denies urinary frequency and Denies urinary urgency Musc Denies back pain, Denies arthralgias, Denies joint swelling, Denies muscle weakness and Denies neck pain Skin/Breast Denies change in pigmentation, Denies lesions, Denies rash and Denies unusual bruising Neuro Denies dizziness, Denies headache(s), Denies paresthesias and Denies weakness Endo Denies fatigue and Denies palpitations Aller/Immun Denies itchy eyes and Denies wheezing Physical exam (Primary Care) Vital Signs: Last Vital Signs Pulse 63 01/08/25 13:13 BP 106/64 01/08/25 13:13 Pulse Ox 98 01/08/25 13:13 Oxygen Delivery Method Room Air 01/08/25 13:13 BMI result Body Mass Index 23.5 Tobacco/Smoking Status: Tobacco use Status Tobacco use date assessed 01/08/25 01/08/25 13:14 Patient Tobacco Use Status Former Tobacco user 01/08/25 13:14 Tobacco use type Cigarette 01/08/25 13:14 e-Cigarette/Vaping Use Never Used 01/08/25 13:14 PHQ-9: PHQ-9 Score PHQ-9: Total score 0 01/08/25 14:24 Depression Screening Interpretation: Negative Thrive Assessment: Date of Thrive Assessment Date Thrive assessed 01/08/25 01/08/25 13:14 Currently or been in a relationship where the following occur: No concerns reported Const General: no acute distress, alert and awake Orientation/consciousness: patient oriented x3 HENMT Head: Yes normocephalic and Yes atraumatic Ears: external ears normal, TM's normal bilaterally and EAC's normal General nose exam: No nasal discharge present Face and sinus: Yes normal facial exam and Yes sinuses nontender Teeth and gingiva: dentition normal Throat: Yes posterior oropharynx normal and Yes tonsils normal (no TP congestion) Eyes Eyelids: Yes eyelids normal Conjunctivae: conjunctivae normal Pupils: Equal, round and reactive pupils present EOM: EOMs intact bilaterally Neck Neck: Yes no lymphadenopathy and Yes supple Thyroid: Thyroid normal Resp Auscultation: clear to auscultation bilaterally, no rales and no wheezes Cardio Rate: regular rate Rhythm: regular rhythm Heart sounds: no murmurs GI Palpation (GI): Soft to palpation, nontender and No hepatosplenomegaly present Auscultation: normal bowel sounds General: Yes no CVA tenderness Back/Spine/Pelvis Back: no CVA tenderness Thoracic/Lumbar Spine: thoracic and lumbar spine normal to inspection Skin Lesions: no lesions Rashes: no rashes Neuro General: patient oriented x3, moves all extremities, no focal motor deficits and CN's II-XI intact bilaterally Cranial nerves: Yes Equal, round and reactive pupils present Cognition (Neuro): normal cognition Gait exam (Neuro): Normal gait present Extrem General: Yes no clubbing, cyanosis or edema Results Reviewed Results Reviewed: Laboratory Tests 12/28/24 12/28/24 07:53 07:58 WBC 4.9 Hgb 14.7 Hct 44.1 Plt Count 241 Sodium 139 Potassium 4.4 Creatinine 0.79 Estimated GFR > 60 Fasting Glucose 93 Calcium 9.0 AST 24 ALT 25 Triglycerides 121 Cholesterol 197 LDL Cholesterol, Calc 129 H HDL Cholesterol 44 PSA Screen 2.52 25-OH Vitamin D Total 23.5 L TSH 1.63 Ur Specific [place] 1.020 Urine Protein Negative Urine Glucose (UA) Negative Urine Blood Negative Urine Nitrite Negative Ur Leukocyte Esterase Trace H Coding Level of Care Code Est Pt Prev Care >65y(91424) Diagnoses Annual physical exam Z00.00 Pure hypercholesterolemia E78.00 Elevated blood pressure reading R03.0 Vitamin D deficiency E55.9 Gastroesophageal reflux disease with esophagitis without hemorrhage K21.00 Esophagitis bleeding: without hemorrhage Primary osteoarthritis, right shoulder M19.011 Erectile dysfunction, unspecified erectile dysfunction type N52.9 Erectile dysfunction type: unspecified Additional Codes PHQ-9 - 08530 - PHQ-9 Billing: Yes ([id number]) Assessment & Plan Assessment & Plan (1) Annual physical exam: Code(s): Z00.00 - Encounter for general adult medical examination without abnormal findings Category: Medical Plan: Results of his labs done a couple of weeks ago reviewed and discussed with patient He is up-to-date with his colon cancer screening - he last had his colonoscopy done in 2015 and will be due his repeat colonoscopy next year (2026) (2) Pure hypercholesterolemia: Code(s): E78.00 - Pure hypercholesterolemia, unspecified Category: Medical Plan: His cholesterol numbers on his recent labs improved from last year with his total cholesterol now at 197 mg/dL and LDL cholesterol at 129 mg/dL Reinforced low cholesterol diet He takes OTC CholestOff daily to help lower his cholesterol level Patient scored [address] done last year, which is low (3) Elevated blood pressure reading: Code(s): R03.0 - Elevated blood-pressure reading, without diagnosis of hypertension Category: Medical Plan: Reinforced low sodium diet - goal is systolic BP of at least 130 to 140 mm or less Patient states that his blood pressure readings at home mostly trend higher in the morning but his systolic BP does not go any higher than 145 to 151 mm and in the late afternoon runs generally from 121 to 142 mm His BP in the office today is excellent at 106/64 mm Patient is reminded to continue monitoring his blood pressure regularly (4) Vitamin D deficiency: Code(s): E55.9 - Vitamin D deficiency, unspecified Category: Medical Plan: Continue Vitamin D3 2000 units QD (5) GERD with esophagitis: Code(s): K21.00 - Gastro-esophageal reflux disease with esophagitis, without bleeding Category: Medical Qualifiers: Esophagitis bleeding: without hemorrhage Qualified Code(s): K21.00 - Gastro-esophageal reflux disease with esophagitis, without bleeding Plan: Dietary restrictions reinforced (6) Primary osteoarthritis, right shoulder: Code(s): M19.011 - Primary osteoarthritis, right shoulder Category: Medical Plan: S/P arthroscopic shoulder surgery with [facility] last year (2023) Follow up with orthopedics as scheduled (7) Erectile dysfunction: Code(s): N52.9 - Male erectile dysfunction, unspecified Category: Medical Qualifiers: Erectile dysfunction type: unspecified Qualified Code(s): N52.9 - Male erectile dysfunction, unspecified Plan: Will start patient on Tadalafil 20 mg PRN Have advised patient that I do not know much about Ro salguero other than it is some combination of Sildenafil and Tadalafil so I am unable to give any advice or insight as to whether it is safe to take or not Plan Follow-up in 6 months Medications: New tadalafil (pulm. hypertension) administer approximately 30min before sexual activity; do not use more than 1 dose per 24hrs 20 mg PO DAILY PRN 10 tabs 1RF sexual activity
[2025-01-08 13:13] VITALS: BP 106/64; PULSE 63; O2SAT 98; BMI 23.5
--- OUTSIDE RECORDS SUMMARY | 2025-01-08 14:04 | XMS_ITS | Clinical Summary ---
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
--- OUTSIDE RECORDS SUMMARY | 2025-01-08 14:04 | XMS_ITS | Continuity of Care Document ---
Author Organization [facility] Address [address] [place] [address] [address] [place] [address]- Care Team Providers Care Benzol Still Operator Name Role Phone Efrain Hernandez MD Primary Care Physician [phone] Encounter [facility] Date(s): 12/31/24 - 01/07/25 [facility] [address] [place], [place] [address] Attending Physician: Sofiya Nieves MD Referring Physician: Efrain Hernandez MD Encounter Type: Office Visit Allergies, Adverse Reactions, Alerts Substance Criticality Severity Reaction Reaction Severity Status LamISIL HIVES Active Immunizations Given and Recorded Vaccine Date Status Refusal Reason SARS-CoV-2 (COVID-19) mRNA BNT-162b2 vac 03/04/21 Given SARS-CoV-2 (COVID-19) mRNA BNT-162b2 vac 02/11/21 Given tetanus/diphtheria/pertussis, acel(Tdap) 07/08/11 Given Medications Centrum Silver Men's By Mouth, Daily, 0 Refills, Maintenance, 11/17/20 10:36:00 AM EST, Partial fill upon patient request if the prescription is for a schedule II opioid drug. Start Date: 11/17/20 Status: Ordered Repeat number: 1 oxyCODONE 5 mg oral tablet 5 mg, 1, tablet, By Mouth, Every 4 hours, PRN, Refills 0, Tot. Refills 0, Maintenance, Pain , Moderate, 04/14/21 11:07:00 AM EDT, Partial fill upon patient request if the prescription is for a schedule II opioid drug. Start Date: 04/14/21 Status: Ordered Repeat number: 1 Vitamin D3 1000 intl units oral capsule 1 capsule = 1,000 International_Units, By Mouth, Daily, # 75 capsule, 0 Refills, Maintenance, 11/17/20 10:37:00 AM EST, Capsule, Partial fill upon patient request if the prescription is for a schedule II opioid drug. Start Date: 11/17/20 Status: Ordered Quantity: 75.0 Unit: capsule Repeat number: 1 Problem List Condition Confirmation Course Effective Dates Status Health St atus Informant Hypercholesteremia Confirmed Active Left inguinal pain Confirmed Active Vital Signs Most recent to oldest [Reference Range]: 1 Height 180 cm (12/31/24 10:43 AM) Weight 79.0 kg (12/31/24 10:43 AM) Pulse Rate [55-90 bpm] 58 bpm (12/31/24 10:43 AM) Body Mass Index [18.5-24.99 kg/m2] 24.38 kg/m2 (12/31/24 10:43 AM) Blood Pressure [90-138/55-84 mm Hg] 164/ 88mm Hg *H* (12/31/24 10:43 AM) Blood pressure sites Arm, right (12/31/24 10:43 AM) Dry Weight 79.0 kg (12/31/24 10:43 AM) Weight Obtained Via Standing scale (12/31/24 10:43 AM) Dry Weight Obtained Via Standing scale (12/31/24 10:43 AM) Social History Social History Type Response Smoking Status Former smoker; Other : Quit 1988; entered on: 11/03/16 Sex Sex Representation Male (finding) Note * Mariluz Demarco MA: PERFORM Event Display: Patient Education/Instruction Authored Date: [id number] Ambulatory Adult Visit Summary [facility] Name: JOSEPH FINE : 1950?? Visit: 12/31/2024 10:37?? Ambulatory Visit Instructions ?? Your Care Team Primary Care Provider Efrain Hernandez MD? This Visit Provider Sofiya Nieves MD Vitals Signs Pulse Rate: 58 bpm Height: 180 cm Systolic Blood Pressure:??164 mm Hg??High Weight: 79 kg Diastolic Blood Pressure:??88 mm Hg??High Body Mass Index: 24.38 kg/m2 ?? Body surface area: 1.99 What to do next Follow-Up Appointments Follow Up with??Sofiya Nieves MD When:??Only if needed Where: [address] [place] [address] [address] [facility] [place] [place] [address]- Medications The list below reflects the information in our records and provided by you today along with any changes made during this visit. Please continue your medications until treatment is completed or stopped by your provider. If this is different from the information you have or there are other questions,please contact the prescribing provider. What How Much When Instructions Unchanged Cholecalciferol (Vitamin D3 1000 intl units oral capsule) 1 capsule Oral Daily Unchanged Multivitamin With Minerals (Centrum Silver Men's) Oral Daily Unchanged Oxycodone (oxyCODONE 5 mg oral tablet) 1 tab(s) Oral Every 4 hours as needed for Pain , Moderate Medications and Immunizations Administered Medications Given During Visit No medications given during this visit.?? Allergies (NKA means No Known Allergies) LamISIL??(HIVES) Common Emergency Awareness Tips IS IT A STROKE? Act FAST and Check for these signs: FACE Does the face look uneven? ARM Does one arm drift down? SPEECH Does their speech sound strange? TIME Call at any sign of stroke ?? Heart Attack Signs Chest discomfort: Most heart attacks involve discomfort in the center of the chest and lasts more than a few minutes, or goes away and comes back. It can feel like uncomfortable pressure, squeezing, fullness or pain. Discomfort in upper body: Symptoms can include pain or discomfort in one or both arms, back, neck, jaw or stomach. Shortness of breath: With or without discomfort. Other signs: Breaking out in a cold sweat, nausea, or lightheaded. Remember, MINUTES DO MATTER. If you experience any of these heart attack warning signs, call to get immediate medical attention! ?? Smoking can increase your chances of developing chronic health problems and can cause harmful effects to other family members in your house. If you smoke, you are strongly encouraged to quit. Please call [email or web address] at [phone] or [phone] ([phone]) or log in to [email or web address] for referrals to smoking cessation programs. ?? The National Suicide Prevention Hotline is available 13/06 if you or someone you know needs to find a reason to keep living. By calling 6-261-085-Vibes (7257) you'll be connected to a skilled, trained counselor at a crisis center in your area. [facility] Portal You can view and manage your care through the patient portal or by using a health care melinda of your choosing. [employer] is a website that allows you to securely view your medical information including your hospital discharge summary, office visit summaries, medications and follow-up visits. You can also request appointments, renew medications, and request access to your medical information using a health care melinda of your choosing, or just ask a question. You can enroll at [email or web address] or register during your next office visit. [facility], in keeping with [facility] guidance, no longer requires face masks for staff, patientsor visitors in most situations. Similiar to time spent indoors at other locations, there is the chance that you were exposed to repiratory viruses during your time with us (such as flu or COVID-19). If you develop symptoms concerning for a viral respiratory infection, please seek testing (and treatment if indicated) from your medical provider or home test kit. ?? Disclaimer: The information provided is of a general nature and is intended to be used in conjunction with the recommendations and advice of your health care practitioner. Every effort has been made to ensure that the information provided is accurate and complete at the time it is provided to you however, as your needs change, or, as new information becomes available, different or additional instructions may be required. ?? If you have questions, please consult with your primary care provider or pharmacist, as appropriate. This information is not intended to serve as substitution for assessment and evaluation by a qualified health care provider. If you do not have a primary care provider, you may find a [facility] provider by calling [email or web address] at [phone]. Patient Care team information Care Team Personnel Name: Efrain Hernandez MD Position: Reference Physician Member Role: PCP [address]: [address] [place] [address] [address] [place] [address]- Telecom: Care Team Related Persons Name: SATISHARIAS BarnettLEY Name: BABATUNDE BETH Name: LEIGHA TEIXEIRA Name: DAISY TEIXEIRA Insurance Providers Guarantor name: JOSEPH FINE Health Plan Information #: 3 Payer: [employer] Member Number: [id number] Policy Number: NA Group Number: NA Health Plan Information #: 5 [facility] Number: [id number] Policy Number: NA Group Number: Health Plan Information #: 1 Payer: NA Member Number: [id number] Policy Number: Group Number: [id number] Health Plan Information #: 4 Payer: NA Member Number: [id number] Policy Number: Group Number: [id number] Health Plan Information #: 2 Payer: MEDICARE PART B OUTPT Member Number: [id number] Policy Number: Group Number: NA
== END 2025-01-08 14:06 | disposition home or self-care (01) ==
PROVIDERS: PCP Internal Medicine; Visit Provider Internal Medicine
DX: Z00.00 Encounter for general adult medical examination without abnormal findings (principal); E78.00 Pure hypercholesterolemia, unspecified; R03.0 Elevated blood-pressure reading, without diagnosis of hypertension; E55.9 Vitamin D deficiency, unspecified; K21.00 Gastro-esophageal reflux disease with esophagitis, without bleeding; M19.011 Primary osteoarthritis, right shoulder; N52.9 Male erectile dysfunction, unspecified

== ENCOUNTER → 2025-01-08 13:07 | Outpatient (BNVA) | payer MEDICARE, SELFPAY | PROVIDERS: PCP Internal Medicine; Visit Provider Internal Medicine | DX: Z00.00 Encounter for general adult medical examination without abnormal findings (principal); E78.00 Pure hypercholesterolemia, unspecified; R03.0 Elevated blood-pressure reading, without diagnosis of hypertension; E55.9 Vitamin D deficiency, unspecified; K21.00 Gastro-esophageal reflux disease with esophagitis, without bleeding; M19.011 Primary osteoarthritis, right shoulder; N52.9 Male erectile dysfunction, unspecified | CPT/HCPCS: 96127; 99397 ==

== ENCOUNTER 2025-07-08 08:50 | Outpatient (AMB) | payer MEDICARE, SELFPAY ==
[2025-07-08 08:58] VITALS: BP 142/86; PULSE 46; O2SAT 99; BMI 22.0
--- NOTE | 2025-07-08 08:58 | A.OFFPC_ITS ---
Vital Signs 07/08/25 08:58 Height 6 ft Weight 162 lb BMI 22.0 BP 142/86 H Blood Pressure Location Lt brachial Position Sitting Pulse 46 L Pulse Source Pulse Oximeter Pulse Oximetry (%) 99 Oxygen Delivery Method Room Air Intake Visit Reasons: 6mth f/u Windows Security Analyst Required: No Accompanied by: Self / Same As Patient Allergies terbinafine (Lamisil) Allergy (Unknown, Verified 07/08/25 09:25) unknown Medication List - Last Reconciled 07/08/25 by Efrain Hernandez MD blood pressure monitor As directed cholecalciferol (vitamin D3) 50 mcg PO DAILY multivitamin (Daily Multi-Vitamin tablet) 1 tab PO DAILY phytosterol-pantethine 300-100 mg (CholestOff Complete) 1 cap PO DAILY sildenafil 50 mg PO DAILY PRN Tobacco use date assessed: 07/08/25 Fall risk assessment: No Falls in past year Last assessed Fall Risk: 07/08/25 Dental Screening Dental Screen Date: 07/08/25 Did you have a dental visit in the last 12 months?: Yes Did you have a dental problem in the last 6 months where you did not have access to dental care?: No Was dental information given to patient?: Patient has dentist HPI 6mth f/u HPI Details Patient comes in today for his follow up visit States that he just had a melanoma lesion on his right cheek surgically excised by [facility] last month Notes that the surgical scar on his right cheek has healed well States that he has also lost some weight lately by changing his diet around and he would like to get some follow up labs to recheck his cholesterol level States that he feels okay He denies any headaches or dizziness Denies any chest pains, no SOB No nausea/vomiting, no abdominal pain No change in bowel habits noted States that he is planning to have surgery done on his right hand for the Dupuytren's contracture but is thinking about having this done after the ski as he still wants to be able to enjoy some skiing this winter [facility] Medical History Dupuytren's contracture of right hand Primary osteoarthritis, right shoulder Urinary frequency Vitamin D deficiency GERD with esophagitis Pure hypercholesterolemia Normal colonoscopy Lumbar degenerative disc disease Hyperlipidemia Surgical History (Updated 07/08/25 @ 10:15 by Efrain Hernandez MD) History of melanoma excision History of colonoscopy S/P right knee arthroscopy (~11/20/20) S/P medial meniscus repair of right knee Status post lumbar surgery Family History Other Family history non-contributory Social History Housing: House Alcohol intake: former Patient Tobacco Use Status: Former Tobacco user Tobacco use type: Cigarette e-Cigarette/Vaping Use: Never Used Second Hand Smoke Exposure: No service: No Current occupational status: retired Cognitive needs: No Hearing needs: No Vision needs: No Questionnaire PHQ-9 Over the last 2 weeks, how often have you been bothered by any of the following problems? 1. Little interest or pleasure in doing things: not at all 2. Feeling down, depressed, or hopeless: not at all 3. Trouble falling or staying asleep, or sleeping too much: not at all 4. Feeling tired or having little energy: not at all 5. Poor appetite or overeating: not at all 6. Feeling bad about yourself - or that you are a failure or have let yourself or your family down: not at all 7. Trouble concentrating on things, such as reading the newspaper or watching television: not at all 8. Moving or speaking so slowly that other people could have noticed. Or the opposite - being so fidgety or restless that you have been moving around a lot more than usual: not at all 9. Thoughts that you would be better off or of hurting yourself in some way : not at all Total score: 0 Depression Screening Interpretation: Negative Depression Screening Done: Yes 01215 - PHQ-9 Billing: Yes Source: Developed by Drs. Anoop Koch, Nely Cm, Lucien Tyson and colleagues, with an educational riley from [employer]. Thrive Questionnaire Date Thrive assessed: 07/08/25 I am a: Patient What is your living situation today?: I have a steady place to live Within the past 12 months, did the food you bought not last and you didn't have the money to get more?: Never true Within the past 12 months, did you worry whether your food would run out before you got money to buy more?: Never true Do you have trouble paying for medicines?: No Do you have trouble getting transportation to medical appointments?: No Do you have trouble paying your heating and electricity bill?: No Do you have trouble taking care of your child, family member or friend?: No Do you have trouble with day-to-day activities such as bathing, preparing meals, shopping, managing finances, etc.?: No Are you currently unemployed and looking for a job?: No Are you interested in more education?: No Please select the resources that you would like help with: None Currently or been in a relationship where the following occur: No concerns reported THRIVE Score: 0 AUDIT C Alcohol Use Questionnaire (AUDIT-C) 1. How often do you have a drink containing alcohol?: Never 3. How often do you have six or more drinks on one occasion?: Never Total Score: 0 Score Reviewed/Action Taken: Yes BACILIO-7 AMB Questionnaire BACILIO-7 Date BACILIO - 7 assessed: 07/08/25 Feeling nervous, anxious, or on edge: 0 = Not at all Not being able to stop or control worryin = Not at all Worrying too much about different things: 0 = Not at all Trouble relaxin = Not at all Being so restless that it is hard to sit still: 0 = Not at all Becoming easily annoyed or irritable: 0 = Not at all Feeling afraid as if something awful might happen: 0 = Not at all Total BACILIO-7 score (0-4 normal; 5-9 mild; 10-14 moderate; 15-21 severe): 0 Source: Developed by Drs. Anoop Koch, Nely Cm, Lucien Tyson and colleagues, with an educational riley from [employer]. Review of Systems Const Denies chills, Denies fatigue, Denies fever(s) and Denies headache(s) ENT Denies dysphagia, Denies dizziness, Denies otalgia, Denies headache(s), Denies neck pain, Denies odynophagia and Denies sore throat Card Denies chest pain, Denies palpitations and Denies dyspnea Resp Denies chest congestion, Denies cough and Denies dyspnea GI Denies abdominal pain, Denies constipation, Denies dysphagia, Denies heartburn, Denies diarrhea, Denies nausea, Denies odynophagia and Denies vomiting Denies difficulty urinating, Denies dysuria, Denies nocturia and Denies urinary frequency Musc Denies back pain and Denies neck pain Skin/Breast Details: (+) healed scar on the right cheek Denies rash Neuro Denies dizziness and Denies headache(s) Endo Denies fatigue and Denies palpitations Physical exam (Primary Care) Vital Signs: Last Vital Signs Pulse 46 L 07/08/25 08:58 BP 142/86 H 07/08/25 08:58 Pulse Ox 99 07/08/25 08:58 Oxygen Delivery Method Room Air 07/08/25 08:58 BMI result Body Mass Index 22.0 Tobacco/Smoking Status: Tobacco use Status Tobacco use date assessed 07/08/25 07/08/25 09:04 Patient Tobacco Use Status Former Tobacco user 07/08/25 09:04 Tobacco use type Cigarette 07/08/25 09:04 e-Cigarette/Vaping Use Never Used 07/08/25 09:04 PHQ-9: PHQ-9 Score PHQ-9: Total score 0 07/08/25 09:04 Depression Screening Interpretation: Negative Thrive Assessment: Date of Thrive Assessment Date Thrive assessed 07/08/25 07/08/25 09:04 Currently or been in a relationship where the following occur: No concerns reported Const General: no acute distress and alert HENMT Ears: TM's normal bilaterally and EAC's normal Throat: Yes posterior oropharynx normal and Yes tonsils normal (no TP congestion) Neck Neck: Yes supple and No lymphadenopathy Thyroid: Thyroid normal Resp Auscultation: clear to auscultation bilaterally, no rales and no wheezes Cardio Rate: regular rate Rhythm: regular rhythm Heart sounds: no murmurs GI Palpation (GI): Soft to palpation and nontender Auscultation: normal bowel sounds General: Yes no CVA tenderness Back/Spine/Pelvis Back: no CVA tenderness Thoracic/Lumbar Spine: No lumbar spinal tenderness Skin Other: (+) well-healed surgical scar on the right cheek Rashes: no rashes Extrem Other: (+) palpable nodular lesion on the palm of the right hand near the base of the right 4th and 5th fingers; patient is unable to fully extend his right 5th finger General: Yes no clubbing, cyanosis or edema Coding Level of Care Code Est Pt Level 4 (24786) Diagnoses Pure hypercholesterolemia E78.00 Elevated blood pressure reading R03.0 Vitamin D deficiency E55.9 Malignant melanoma of face excluding eyelid, nose, lip, and ear C43.30 Melanoma location: face excluding eyelid, nose, lip, and ear Gastroesophageal reflux disease with esophagitis without hemorrhage K21.00 Esophagitis bleeding: without hemorrhage Primary osteoarthritis, right shoulder M19.011 Dupuytren's contracture of right hand M72.0 Erectile dysfunction, unspecified erectile dysfunction type N52.9 Erectile dysfunction type: unspecified Additional Codes PHQ-9 - 96310 - PHQ-9 Billing: Yes ([id number]) Assessment & Plan Assessment & Plan (1) Pure hypercholesterolemia: Code(s): E78.00 - Pure hypercholesterolemia, unspecified Category: Medical Plan: Reinforced low cholesterol diet He takes OTC CholestOff daily to help lower his cholesterol level Patient scored [address] done last year, which is low Per request, will send him for some follow up labs to recheck his cholesterol levels since he has lost a lot of weight lately by changing his diet (2) Elevated blood pressure reading: Code(s): R03.0 - Elevated blood-pressure reading, without diagnosis of hypertension Category: Medical Plan: Reinforced low sodium diet - goal is systolic BP of at least 130 to 140 mm or less Patient states that his blood pressure readings at home mostly trend higher in the morning but his systolic BP does not go any higher than 145 to 151 mm and in the late afternoon runs generally from 121 to 142 mm His BP in the office today is elevated slightly at 142/86 mm but it was excellent at his last visit in December 2024 at 106/64 Patient is reminded to continue monitoring his blood pressure regularly (3) Vitamin D deficiency: Code(s): E55.9 - Vitamin D deficiency, unspecified Category: Medical Plan: Continue Vitamin D3 2000 units QD (4) Melanoma: Comment: on the right cheek Code(s): C43.9 - Malignant melanoma of skin, unspecified Category: Medical Qualifiers: Melanoma location: face excluding eyelid, nose, lip, and ear Qualified Code(s): C43.30 - Malignant melanoma of unspecified part of face Plan: Patient reportedly underwent a wide margin excision of the melanoma lesion on his right cheek with [facility] last month and the surgical scar on hi right cheek has healed well He was reportedly advised by dermatology that his margins were all clear of cancer Follow up with dermatology regularly as scheduled for continuing surveillance (5) GERD with esophagitis: Code(s): K21.00 - Gastro-esophageal reflux disease with esophagitis, without bleeding Category: Medical Qualifiers: Esophagitis bleeding: without hemorrhage Qualified Code(s): K21.00 - Gastro-esophageal reflux disease with esophagitis, without bleeding Plan: Dietary restrictions reinforced (6) Primary osteoarthritis, right shoulder: Code(s): M19.011 - Primary osteoarthritis, right shoulder Category: Medical Plan: S/P arthroscopic shoulder surgery with [facility] last year (2023) Follow up with orthopedics as scheduled (7) Dupuytren's contracture of right hand: Code(s): M72.0 - Palmar fascial fibromatosis [Dupuytren] Category: Medical Plan: Follow up with hand surgeon at [facility] as scheduled States that he is planning to have corrective surgery done on his hand by Dr. Randolph at some point and is considering having this done after the upcoming ski season is over so he can still go and enjoy some skiing this coming winter (8) Erectile dysfunction: Code(s): N52.9 - Male erectile dysfunction, unspecified Category: Medical Qualifiers: Erectile dysfunction type: unspecified Qualified Code(s): N52.9 - Male erectile dysfunction, unspecified Plan: Continue Tadalafil 20 mg PRN Plan To return as scheduled in December 2025 for his next annual physical examination Will have him get his routine labs done just before he comes in for his appointment in December 2025 Orders: Orders Complete Blood Count Auto Diff 01/04/26 D64.9 - Anemia, unspecified, Z00.00 - Encounter for general adult medical examination without abnormal findings UA CC w/rflx Micro + Cult 01/04/26 R30.0 - Dysuria, Z00.00 - Encounter for general adult medical examination without abnormal findings Vitamin D 25-OH Total 01/04/26 E55.9 - Vitamin D deficiency, unspecified, Z00.00 - Encounter for general adult medical examination without abnormal findings Comprehensive [place]. Panel Fast Today E78.00 - Pure hypercholesterolemia, unspecified Lactate Dehydrogenase Today C43.9 - Malignant melanoma of skin, unspecified, E83.52 - Hypercalcemia Lipid Panel Today E78.00 - Pure hypercholesterolemia, unspecified TSH reflex Free T4 Today E78.00 - Pure hypercholesterolemia, unspecified Comprehensive [place]. Panel Fast 01/04/26 E78.00 - Pure hypercholesterolemia, unspecified, Z00.00 - Encounter for general adult medical examination without abnormal findings Lipid Panel 01/04/26 E78.00 - Pure hypercholesterolemia, unspecified, Z00.00 - Encounter for general adult medical examination without abnormal findings TSH reflex Free T4 01/04/26 E78.00 - Pure hypercholesterolemia, unspecified, Z00.00 - Encounter for general adult medical examination without abnormal findings Vitamin B12 and Folate 01/04/26 E53.8 - Deficiency of other specified B group vitamins, Z00.00 - Encounter for general adult medical examination without abnormal findings Lactate Dehydrogenase 01/04/26 C43.9 - Malignant melanoma of skin, unspecified
--- OUTSIDE RECORDS SUMMARY | 2025-07-08 09:18 | XMS_ITS | Clinical Summary ---
Author Organization [facility] Address [address] [place] [address] Care Team Providers Care Landscape Nurseryman Name Role Phone Unavailable Primary Care Provider Unavailabl e Social History Tobacco Use Types Packs/Day Years Used Date Smoking Tobacco: Never Assessed Sex and Gender Information Value Date Recorded Sex Assigned at Not on file Legal Sex Male 3:04 PM EDT Gender Identity Not on file Sexual Orientation [...]
--- OUTSIDE RECORDS SUMMARY | 2025-07-08 09:18 | XMS_ITS | Clinical Summary ---
Author Organization [facility] Address [address] [place] [address] Phone Care Team Providers Care Mixer Crane Operator Name Role Phone Efrain Hernandez MD Primary Care Provider [phone] Allergies Active Allergy Reactions Criticality Noted Date Comments Lamisil (Terbinafine) Hives High 08/05/2014 Medications No known medications Active Problems Problem Noted Date Diagnosed Date Hand pain 08/05/2014 Overview (01/10/2015): Hand pain Pain in wrist 08/05/2014 Overview (01/10/2015): Pain in wrist Social History Tobacco Use Types Packs/Day Years Used Date Smoking Tobacco: Former Cigarettes Q uit: 1970 Smokeless Tobacco: Never Tobacco Cessation:Counseling Given: Not Answered Alcohol Use Standard Drinks/Week Comments Not Currently 0 (1 standard drink = 0.6 oz pur e alcohol) Education Answer Date Recorded Are you interested in more education? Not on bharath e 03/18/2023 Are you concerned about learning? Not on file 03/18/2023 No 03/18/2023 No 03/18/2023 Digital Access Answer Date Recorded No 04/18/2023 No 04/18/2023 Reliable internet access at home? Not on file 04/18/2023 Device with a working camera? Not on file Sex and Gender Information Value Date Recorded Sex Assigned at Male 12/16/2021 4:27 PM EST Legal Sex Male 3:33 PM EDT Gender Identity Male 12/16/2021 4:27 PM EST Sexual Orientation Straight 12/16/2021 4: 27 PM EST Plan of Treatment Health Maintenance Due Date Last Done Comments LIPID PANEL 1951 DEPRESSION SCREENING 1963 SMOKING Hx and SMOKELESS TOBACCO SCREENING 1964 HEPATITIS C SCREENING 1969 COLOGUARD 1996 COLONOSCOPY 1996 COLORECTAL CANCER SCREENING 1996 FIT TEST 1996 FOBT 1996 SIGMOIDOSCOPY 1996 VIRTUAL COLONOSCOPY 1996 PNEUMOCOCCAL VACCINES (50+ years) (1 of 1 - PCV) 2001 ZOSTER VACCINES (1 of 2) 2001 ABDOMINAL AORTIC ANEURYSM (AAA) SCREENING 2016 COVID-19 VACCINE (3 - 2023-2 5 season) 2024 03/04/2021, 02/11/2021 RSV VACCINE (1 - 1-dose 75+ series) 2026 Adult Td,Tdap Booster 12/02/2030 12/02/2020 HEPATITIS A VACCINES Aged Out No long er eligible based on patient's age to complete this topic HIB VACCINES Aged Out No longer eligi ble based on patient's age to complete this topic MENINGOCOCCAL VACCINES (ACWY) Aged Out No longer eligible based on patient's age to complete this topic MENINGOCOCCAL VACCINES (B) Aged Out N o longer eligible based on patient's age to complete this topic Medical Devices Not on file Insurance [place] BLUE REPLACEMENT HEALTH S[employer] NET FULL MEDICARE PART A & B [facility] [place] BLUE REPLACEMENT HEALTH SAFETY NET FULL MEDICARE PART A & B [facility] [place] BLUE REPLACEMENT [facility] NET FULL MEDICARE PART A & B Member Subscriber Plan / Payer (Ef fective 2016-Present) Name:Suhas Lund Member ID:[id number] Relation to Subscriber:Self Name:Suhas Lund Subscriber ID:[id number] Payer ID:[id number] Group ID:Not on file Type:Medicare Address: [facility] Hospic[facility]ink [facility] [address] [place] [address] [place] BLUE REPLACEMENT HEALTH SAFETY NET FULL MEDICARE PART A & B [place] BLUE REPLACEMENT HEALTH SAFETY NET FULL MEDICARE PART A & [facility] [place] BLUE REPLACEMENT HEALTH SAFETY NET FULL MEDICARE PART A & [facility] [place] PPO BLUE REPLAC[place] [address] NET FULL MEDICARE PART A & [facility] MEDICARE PPO BLUE REPLACEMENT [facility] FULL MEDICARE PART A & B [facility] MEDICARE PPO BLUE REPLACEMENT HEALTH SAFETY NET FULL MEDICARE PART A & B Member Subscriber Plan / Payer (Ef fective 2016-Present) Name:Suhas Lund Member ID:[id number] Relation to Subscriber:Self Name:Suhas Lund Subscriber ID:[id number] Payer ID:[id number] Group ID:Not on file Type:Medicare Address: [facility] Hospic[facility]ink [facility] [address] [place] [address] [facility] Care Teams Mixer Crane Operator Relationship Specialty Start Date End Date Efrain Hernandez MD [address] [place] [address] [place] [address] PCP - General Internal Medicine 07/24/14 Additional Source Comments The information contained in this document represents components of the legal health record. It is not the complete legal health record.[facility]
== END 2025-07-08 09:34 | disposition home or self-care (01) ==
LOC: HO.HMCH 08:51
PROVIDERS: PCP Internal Medicine; Visit Provider Internal Medicine
DX: E78.00 Pure hypercholesterolemia, unspecified (principal); R03.0 Elevated blood-pressure reading, without diagnosis of hypertension; E55.9 Vitamin D deficiency, unspecified; C43.30 Malignant melanoma of unspecified part of face; K21.00 Gastro-esophageal reflux disease with esophagitis, without bleeding; M19.011 Primary osteoarthritis, right shoulder; M72.0 Palmar fascial fibromatosis [Dupuytren]; N52.9 Male erectile dysfunction, unspecified

== ENCOUNTER → 2025-07-08 08:50 | Outpatient (BNVA) | payer MEDICARE, SELFPAY | PROVIDERS: PCP Internal Medicine; Visit Provider Internal Medicine | DX: R03.0 Elevated blood-pressure reading, without diagnosis of hypertension (principal); E78.00 Pure hypercholesterolemia, unspecified; E55.9 Vitamin D deficiency, unspecified; C43.30 Malignant melanoma of unspecified part of face; K21.00 Gastro-esophageal reflux disease with esophagitis, without bleeding; M19.011 Primary osteoarthritis, right shoulder; M72.0 Palmar fascial fibromatosis [Dupuytren]; N52.9 Male erectile dysfunction, unspecified; D64.9 Anemia, unspecified; E83.52 Hypercalcemia | CPT/HCPCS: 96127; 99212 ==

== ENCOUNTER 2025-07-09 07:08 | Outpatient (REF) | payer MEDICARE, SELFPAY ==
--- OUTSIDE RECORDS SUMMARY | 2025-07-09 07:10 | XMS_ITS | Clinical Summary ---
Author Organization [facility] Address [address] [place] [address] Phone Care Team Providers Care Theater Manager Name Role Phone Efrain Hernandez MD Primary Care Provider [phone] Allergies Active Allergy Reactions Criticality Noted Date [...] NET FULL MEDICARE PART A & B [facility] [place] BLUE REPLACEMENT HEALTH SAFETY NET FULL MEDICARE PART A & B [facility] [place] MED[place] PPO BLUE REPLACEMENT [facility] NET FULL MEDICARE PART A & B [place] BLUE REPLACEMENT HEALTH SAFETY NET FULL MEDICARE PART A & B [place] BLUE REPLACEMENT HEALTH SAFETY NET FULL MEDICARE PART [facility] & [facility] [place] BLUE REPLACEMENT HEALTH SAFETY NET FULL MEDICARE PART A & [facility] [place] [address] [address] [place] [address] NET FULL MEDICARE PART A & [facility] MEDICARE PPO BLUE REPLACEMENT [facility] FULL MEDICARE PART A & B [facility] MEDICARE PPO BLUE REPLACEMENT HEALTH SAFETY NET FULL MEDICARE PART A & B Member Subscriber Plan / Payer (Ef fective 2016-Present) Name:Suhas Lund Member ID:[id number] Relation to Subscriber:Self Name:Suhas Lund Subscriber ID:[id number] Payer ID:[id number] Group ID:Not on file Type:Medicare Address: [facility] e-Zassi [facility] [address] [place] [address] [facility] Care Teams Theater Manager Relationship Specialty Start Date End Date Efrain Hernandez MD [address] [place] [address] [place] [address] PCP - General Internal Medicine 07/24/14 Additional Source Comments The information contained in this document represents components of the legal health record. It is not the complete legal health record.[facility]
--- OUTSIDE RECORDS SUMMARY | 2025-07-09 07:10 | XMS_ITS | Clinical Summary ---
Author Organization [facility] Address [address] [place] [address] Care Team Providers Care Trains Service Conductor Name Role Phone Unavailable Primary Care Provider [...]
[2025-07-09 07:24] LABS: MANUAL DIFF FLAG NO
[2025-07-09 08:13] LABS: Hematocrit 41.0 % (42.0-52.0); Hemoglobin 13.7 g/dl (14.0-18.0); Imm Gran Abs Auto 0.02 X10*3/uL (0.00-0.03); Imm Gran Pct Auto 0.4 % (0.0-0.4); Lymphocytes Absolute Auto 1.8 X10*3/uL (1.2-4.9); Mean Corpuscular HGB Conc 33.4 g/dl (31.0-36.0); Mean Corpuscular Hemoglobin 31.6 pg (27.0-33.0); Mean Corpuscular Volume 94.7 fL (80.0-98.0); NRBC Abs Auto 0.000 X10*3/uL (0.0-0.012); NRBC Pct Auto 0.0 /100WBC (0.0-0.2); Platelet Count 229 X10*3/uL (160-400); Red Blood Count 4.33 X10*6/uL (4.60-5.80); White Blood Count 5.7 X10*3/uL (4.8-10.8)
[2025-07-09 08:49] LABS: Alanine Aminotransferase 33 U/L (0-40); Albumin Level 3.9 g/dL (3.5-5.0); Alkaline Phosphatase 89 U/L (39-117); Anion Gap 12 (12-20); Aspartate Amino Transferase 30 U/L (5-37); Blood Urea Nitrogen 16 mg/dL (9-16); Calcium 8.9 mg/dL (8.4-10.2); Carbon Dioxide 27 mmol/L (22-29); Chloride 107 mmol/L (96-108); Cholesterol 180 mg/dL (<200); Estimated Glomerular Filt Rate > 60; HDL Cholesterol 40 mg/dL (>40); Potassium 4.5 mmol/L (3.3-5.1); Sodium 141 mmol/L (135-145); Total Protein 6.0 g/dL (6.5-8.0); Triglycerides 97 mg/dL (<150)
[2025-07-09 08:52] LABS: Appearance Urine Clear; Glucose Urine UA Negative (Negative); PH 6.0 (5.0-9.0); Specific Gravity - Urine 1.020 (1.005-1.025)
== END 2025-07-09 07:09 | disposition home or self-care (01) ==
LOC: HO.LAB 07:08
PROVIDERS: PCP Internal Medicine; Visit Provider Internal Medicine
DX: E83.52 Hypercalcemia (principal); R30.0 Dysuria; C43.9 Malignant melanoma of skin, unspecified; E78.00 Pure hypercholesterolemia, unspecified; D64.9 Anemia, unspecified
CPT/HCPCS: 36415; 80053; 80061; 81003; 82306; 83615; 84443; 85025

== ENCOUNTER 2025-08-30 13:36 | Outpatient (AMB) | payer MEDICARE, SELFPAY ==
--- NOTE | 2025-08-30 13:46 | MHC.PC.OV ---
Vital Signs 08/30/25 13:47 Height 6 ft Weight 159 lb 2 oz BMI 21.6 BP 140/80 H Blood Pressure Location Lt brachial Position Sitting Pulse 53 Pulse Source Pulse Oximeter Temp 97.3 F Temp Source Temporal Artery Scan Pulse Oximetry (%) 94 Oxygen Delivery Method Room Air Intake Visit Reasons: chronic cough Intake Note: Patient is here to follow up on Chronic cough and pain in left chest side. Pilot Plant Supervisor Required: No Residential Roofer Helper: Not Required per policy Accompanied by: Self / Same As Patient Allergies terbinafine (Lamisil) Allergy (Unknown, Verified 08/30/25 13:47) unknown Medication List - Last Reconciled 08/30/25 by Zayda Baez NP albuterol sulfate 90 mcg/actuation 2 puffs inhalation Q4-6H PRN blood pressure monitor As directed cholecalciferol (vitamin D3) 50 mcg PO DAILY multivitamin (Daily Multi-Vitamin tablet) 1 tab PO DAILY phytosterol-pantethine 300-100 mg (CholestOff Complete) 1 cap PO DAILY sildenafil 50 mg PO DAILY PRN Tobacco use date assessed: 08/30/25 Fall risk assessment: No Falls in past year Last assessed Fall Risk: 08/30/25 Dental Screening Dental Screen Date: 07/08/25 HPI HPI Comments History of Present Illness Details 74 y/o Male patient who presents to the clinic today for the same day appointment. Pt c/o Productive Cough with Body chills for 3 weeks. Reports Left chest wall (below left Breast) pain and tenderness with breathing and movement. Denies wheezing or SOB. Denies h/o Asthma or COPD. He is a very active Man - runs, snow boarding etc. 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 He noticed the cough right he started working with Chemicals. Reports wearing Resp Mask but sometimes small amount gets onto his Skin. Denies any recent Sick contacts. Denies any other symptoms. He was recently diagnosed with Skin Melanoma - he did have an extensive Bx with removal of the lesions (right face cheek). This was back on April 2025. [facility] Medical History (Updated 08/30/25 @ 14:11 by Zayda Baez, FAUZIA) Cough Dupuytren's contracture of right hand Primary osteoarthritis, right shoulder Urinary frequency Vitamin D deficiency GERD with esophagitis Pure hypercholesterolemia Normal colonoscopy Lumbar degenerative disc disease Hyperlipidemia Surgical History History of melanoma excision History of colonoscopy S/P right knee arthroscopy (~11/20/20) S/P medial meniscus repair of right knee Status post lumbar surgery Family History Other Family history non-contributory Social History Housing: House Alcohol intake: former Patient Tobacco Use Status: Former Tobacco user Tobacco use type: Cigarette e-Cigarette/Vaping Use: Never Used Second Hand Smoke Exposure: No service: No Current occupational status: retired Cognitive needs: No Hearing needs: No Vision needs: No Questionnaire Thrive Questionnaire Date Thrive assessed: 01/08/25 I am a: Patient What is your living situation today?: I have a steady place to live Within the past 12 months, did the food you bought not last and you didn't have the money to get more?: Never true Within the past 12 months, did you worry whether your food would run out before you got money to buy more?: Never true Do you have trouble paying for medicines?: No Do you have trouble getting transportation to medical appointments?: No Do you have trouble paying your heating and electricity bill?: No Do you have trouble taking care of your child, family member or friend?: No Do you have trouble with day-to-day activities such as bathing, preparing meals, shopping, managing finances, etc.?: No Are you currently unemployed and looking for a job?: No Are you interested in more education?: No Please select the resources that you would like help with: None Currently or been in a relationship where the following occur: No concerns reported THRIVE Score: 0 BACILIO-7 AMB Questionnaire BACILIO-7 Date BACILIO - 7 assessed: 07/08/25 Source: Developed by Drs. Anoop Koch, Nely Cm, Lucien Tyson and colleagues, with an educational riley from [employer] Review of Systems Const All systems reviewed & are unremarkable except as noted in HPI and below Physical exam (Primary Care) Vital Signs: Last Vital Signs Temp 97.3 F 08/30/25 13:47 Pulse 53 08/30/25 13:47 BP 140/80 H 08/30/25 13:47 Pulse Ox 94 08/30/25 13:47 Oxygen Delivery Method Room Air 08/30/25 13:47 BMI result Body Mass Index 21.6 Tobacco/Smoking Status: Tobacco use Status Tobacco use date assessed 08/30/25 08/30/25 13:52 Patient Tobacco Use Status Former Tobacco user 08/30/25 13:52 Tobacco use type Cigarette 08/30/25 13:52 e-Cigarette/Vaping Use Never Used 08/30/25 13:52 Thrive Assessment: Date of Thrive Assessment Date Thrive assessed 01/08/25 08/30/25 13:52 Currently or been in a relationship where the following occur: No concerns reported Const General: no acute distress Nutritional Appearance: thin Orientation/consciousness: patient oriented x3 HENMT Head: Yes normocephalic Ears: external ears normal and TM's normal bilaterally General nose exam: Normal external nose present Face and sinus: Yes sinuses nontender Mouth: moist mucous membranes Throat: Yes uvula midline Resp Effort & Inspection: normal respiratory effort, able to speak in complete sentences, no audible wheezes and no cough Auscultation: clear to auscultation bilaterally, no crackles, no rales, no rhonchi and no wheezes Cardio Heart sounds: S1 normal heart sound present and S2 normal heart sound present Neuro General: patient oriented x3, gait normal and moves all extremities Coding Level of Care Code Est Pt Level 4 (67649) Diagnoses Subacute cough R05.2 Cough type: subacute Time Spent (min) 20 Assessment & Plan Assessment & Plan (1) Cough: Code(s): R05.9 - Cough, unspecified Category: Medical Qualifiers: Cough type: subacute Qualified Code(s): R05.2 - Subacute cough Plan: DDX's: GERD vs Pneumonia vs COPD vs Asthma. Ordered Chest Xray Lungs CTA. Ordered Albuterol Inhaler F/U with PCP if no improvement. Might need Pulmonology referral. Orders: Orders XR chest 2V Today R05.2 - Subacute cough Medications: New albuterol sulfate 90 mcg/actuation 2 puffs inhalation Q4-6H PRN 6.7 grams 1RF shortness of breath or wheezing R05.2 - Subacute cough
[2025-08-30 13:47] VITALS: BP 140/80; PULSE 53; TEMP 36.3; O2SAT 94; BMI 21.6
== END 2025-08-30 14:37 | disposition home or self-care (01) ==
LOC: HO.HMCH 13:37
PROVIDERS: PCP Internal Medicine; Visit Provider Nurse Practitioner Family
DX: R05.2 Subacute cough (principal)

== ENCOUNTER 2025-08-30 13:36 | Outpatient (REF) | payer MEDICARE, SELFPAY ==
--- NOTE | ~2025-08-30 | XR_ITS ---
EXAMINATION: XR CHEST CLINICAL INFORMATION: R05.2 - Subacute cough COMPARISON: X-ray 11/03/2018 TECHNIQUE: 2 views of the chest were obtained. FINDINGS: The cardiomediastinal silhouette is within normal limits. The lungs are well expanded. There is no focal consolidation, edema, or effusion. No pneumothorax. Redemonstrated nodular opacity projected over the right lower lung, and in the left lower lung, could reflect nipple shadows. Mild bronchial wall thickening can be seen with small airway disease. Thoracic spine degeneration.. XR/XR chest 2V IMPRESSION: Bronchial wall thickening can be seen with small airway disease. Electronically signed by: Momo Driscoll MD 08/30/2025 02:56 PM EDT
== END 2025-08-30 13:37 | disposition home or self-care (01) ==
LOC: HO.XRAY 13:36
PROVIDERS: PCP Internal Medicine; Visit Provider Nurse Practitioner Family
DX: R05.2 Subacute cough (principal); Z79.899 Other long term (current) drug therapy
CPT/HCPCS: 71046; 99212

== ENCOUNTER → 2025-08-30 14:18 | Outpatient (BNV) | payer MEDICARE, SELFPAY | PROVIDERS: PCP Internal Medicine; Visit Provider Radiology Diagnostic Ultrasound | DX: R05.3 Chronic cough (principal) | CPT/HCPCS: 71046 ==

== ENCOUNTER 2025-09-06 14:14 | Outpatient (AMB) | payer MEDICARE, SELFPAY ==
[2025-09-06 14:35] VITALS: BP 148/68; PULSE 53; RESP 18; TEMP 36.3; O2SAT 96; BMI 21.7
--- NOTE | 2025-09-06 14:35 | A.OFFPC_ITS ---
Vital Signs 09/06/25 14:35 Height 6 ft Weight 160 lb 4 oz BMI 21.7 BP 148/68 H Blood Pressure Location Lt brachial Position Sitting Respiration 18 Pulse 53 Pulse Source Pulse Oximeter Temp 97.3 F Temp Source Temporal Artery Scan Pulse Oximetry (%) 96 Oxygen Delivery Method Room Air Intake Visit Reasons: cramping in stomach/ flu shot Chief Learning Officer Required: No Accompanied by: Self / Same As Patient Allergies terbinafine (Lamisil) Allergy (Unknown, Verified 09/06/25 14:48) unknown Medication List - Last Reconciled 09/06/25 by Igor Vizcarra MD albuterol sulfate 90 mcg/actuation 2 puffs inhalation Q4-6H PRN blood pressure monitor As directed cholecalciferol (vitamin D3) 50 mcg PO DAILY multivitamin (Daily Multi-Vitamin tablet) 1 tab PO DAILY phytosterol-pantethine 300-100 mg (CholestOff Complete) 1 cap PO DAILY sildenafil 50 mg PO DAILY PRN Tobacco use date assessed: 09/06/25 Fall risk assessment: No Falls in past year Last assessed Fall Risk: 09/06/25 Dental Screening Dental Screen Date: 09/06/25 Did you have a dental visit in the last 12 months?: Yes Did you have a dental problem in the last 6 months where you did not have access to dental care?: No Was dental information given to patient?: Patient has dentist HPI HPI Comments History of Present Illness Details The patient is a 74-year-old male presenting with gastrointestinal symptoms following a camping trip, including abdominal pain, foul-smelling stools, and floating stools. The symptoms began after consuming burnt beef stew and drinking brook water d uring a camping trip in the [facility] on August 21. The patient reports a history of similar symptoms when previously diagnosed with giardiasis while volunteering in [place]. The patient describes the abdominal pain as cramping and notes that the stools have been floating and malodorous for the past two weeks. He has experienced mild gassiness and persistent symptoms despite the passage of time. The patient has decided to undergo a stool sample test for confirmation, although treatment for giardiasis will proceed regardless of the test outcome. He will be treated with metronidazole, which is effective against both giardiasis and salmonellosis. The patient will also receive an influenza vaccination during this visit. [facility] Medical History (Updated 09/06/25 @ 15:01 by Igor Vizcarra MD) Cough Dupuytren's contracture of right hand Primary osteoarthritis, right shoulder Urinary frequency Vitamin D deficiency GERD with esophagitis Pure hypercholesterolemia Normal colonoscopy Lumbar degenerative disc disease Hyperlipidemia Surgical History History of melanoma excision History of colonoscopy S/P right knee arthroscopy (~11/20/20) S/P medial meniscus repair of right knee Status post lumbar surgery Family History Other Family history non-contributory Social History Housing: House Alcohol intake: former Patient Tobacco Use Status: Former Tobacco user Tobacco use type: Cigarette e-Cigarette/Vaping Use: Never Used Second Hand Smoke Exposure: No service: No Current occupational status: retired Cognitive needs: No Hearing needs: No Vision needs: No Questionnaire Thrive Questionnaire Date Thrive assessed: 01/08/25 BACILIO-7 AMB Questionnaire BCAILIO-7 Date BACILIO - 7 assessed: 07/08/25 Source: Developed by Drs. Anoop Koch, Nely Cm, Lucien Tyson and colleagues, with an educational riley from [employer] Review of Systems Const Details: Positives besides what was mentioned in HPI are in BOLD Constitutional: No Weight Change, No Fever, No Chills, No Night Sweats, No Fatigue, No Malaise ENT/Mouth: No Hearing Changes, No Ear Pain, No Nasal Congestion, No Sinus Pain, No Hoarseness, No sore throat, No Rhinorrhea, No Swallowing Difficulty Eyes: No Eye Pain, No Swelling, No Redness, No Foreign Body, No Discharge, No Vision Changes Cardiovascular: No Chest Pain, No SOB, No PND, No Dyspnea on Exertion, No Orthopnea, No Claudication, No Edema, No Palpitations Respiratory: No Cough, No Sputum, No Wheezing, No Smoke Exposure, No Dyspnea Gastrointestinal: No Nausea, No Vomiting, No Diarrhea, No Constipation, No Pain, No Heartburn, No Anorexia, No Dysphagia, No Hematochezia, No Melena, No Flatulence, No Jaundice Genitourinary: No Dysmenorrhea, No DUB, No Dyspareunia, No Dysuria, No Urinary Frequency, No Hematuria, No Urinary Incontinence, No Urgency, No Flank Pain, No Urinary Flow Changes, No Hesitancy Musculoskeletal: No Arthralgias, No Myalgias, No Joint Swelling, No Joint Stiffness, No Back Pain, No Neck Pain, No Injury History Skin: No Skin Lesions, No Pruritis, No Hair Changes, No Breast/Skin Changes, No Nipple Discharge Neuro: No Weakness, No Numbness, No Paresthesias, No Loss of Consciousness, No Syncope, No Dizziness, No Headache, No Coordination Changes, No Recent Falls Psych: No Anxiety/Panic, No Depression, No Insomnia, No Personality Changes, No Delusions, No Rumination, No SI/HI/AH/VH, No Social Issues, No Memory Changes, No Violence/Abuse Hx., No Eating Concerns Heme/Lymph: No Bruising, No Bleeding, No Transfusions History, No Lymphadenopathy Endocrine: No Polyuria, No Polydipsia, No Temperature Intolerance Physical exam (Primary Care) Vital Signs: Last Vital Signs Temp 97.3 F 09/06/25 14:35 Pulse 53 09/06/25 14:35 Resp 18 09/06/25 14:35 BP 148/68 H 09/06/25 14:35 Pulse Ox 96 09/06/25 14:35 Oxygen Delivery Method Room Air 09/06/25 14:35 BMI result Body Mass Index 21.7 Tobacco/Smoking Status: Tobacco use Status Tobacco use date assessed 09/06/25 09/06/25 14:41 Patient Tobacco Use Status Former Tobacco user 09/06/25 14:41 Tobacco use type Cigarette 09/06/25 14:41 e-Cigarette/Vaping Use Never Used 09/06/25 14:41 Thrive Assessment: Date of Thrive Assessment Date Thrive assessed 01/08/25 09/06/25 14:41 Const Other: Pertinent findings are in BOLD GENERAL APPEARANCE NAD, activity normal for age, well developed/ well nourished, no cyanosis, pallor, or diaphoresis. EYES lids/conjunctiva normal. EARS/NOSE/THROAT Mucous membranes moist, nares normal, lips/teeth normal uvula midline without oral pharyngeal erythema, exudate or swelling TMs normal bilaterally. No lymphangitis/lymphedema. HEAD/NECK normocephalic atraumatic, no facial trauma, neck is supple. RESPIRATORY respiratory effort normal, speaks in full sentences, no tripod position, no accessory muscle use. Lungs clear to auscultation without rhonchi, wheezes, rales CARDIAC Regular rate and rhythm, no edema. ABDOMINAL Soft, ND/NT. No evidence of fluid wave. No pulsatile masses on exam, rebound tenderness, Keene sign or pain over Mcburney's point. MUSCLES/EXTREMITIES No abnormal range of motion, no swelling. SKIN Warm, pink and dry. No rashes, dermatoses, petechiae or lesions. NEUROLOGICAL Speech is clear and appropriate. Normal level of consciousness. Gait and coordination are normal. 5/5 strength in all extremities. PSYCH Normal mood and affect. Judgement/competence is appropriate Office Procedures Flu Questionnaire Does the patient have a severe egg allergy?: No Does the patient have severe life threatening allergies?: No Does the patient have a fever or illness today?: No Has the patient ever had Guillain-Lorraine Syndrome?: No Has the patient ever had any past reaction to a flu shot?: No Immunizations Fluarix [id number] (PF) 45 mcg (15 mcg x 3)/0.5 mL IM syringe Performing Provider: Igor Vizcarra MD [facility] [place] [facility] Administered by: RUDY Corley on 09/06/25 15:10 Dose Route Admin Location Dispensed Lot Number Expiration Date [facility] Lockstitch Lining Maker 0.5 mL IM Right Deltoid 0.5 mL [id number] 05/20/26 [id number] [facility] VIS Given Date VIS Provided VIS Publication Date 09/06/25 Single Vaccine 24 Eligibility Eligibility Date Funding Source Not [facility] Eligible 09/06/25 Private Coding Level of Care Code Est Pt Level 3 (82404) Diagnoses Gastroenteritis K52.9 Time Spent (min) 20 Assessment & Plan Assessment & Plan (1) Gastroenteritis: Code(s): K52.9 - Noninfective gastroenteritis and colitis, unspecified Category: Medical Plan: - Initiate treatment with metronidazole 250 mg three times daily for seven days. - Stool sample to be collected for confirmation, although treatment will proceed regardless of results. Plan The patient and I discussed the likelihood of giardiasis given the symptoms and recent exposure history. I explained that metronidazole would be effective for both giardiasis and potential salmonellosis. We agreed to proceed with treatment while also collecting a stool sample for confirmation. The patient expressed understanding and consented to the plan. Additionally, we administered an influenza vaccination during the visit. Orders: Orders Leukocytes Stool Qualitative Today K52.9 - Noninfective gastroenteritis and colitis, unspecified Ova and Parasite Today K52.9 - Noninfective gastroenteritis and colitis, unspecified Routine Culture w Gram Stain Today K52.9 - Noninfective gastroenteritis and colitis, unspecified Influenza [id number] Immunization Today Z23 - Encounter for immunization Giardia Ag Stool EIA Today K52.9 - Noninfective gastroenteritis and colitis, unspecified Medications: New metronidazole 250 mg PO TID 21 tabs 0RF
--- OUTSIDE RECORDS SUMMARY | 2025-09-06 16:47 | XMS_ITS | Data Portability ---
Author Organization [facility], [facility] Address [address] [place] [address] Care Team Providers Care Palliative Care Coordinator Name Role Phone GIOVANA MOTLEY Primary Care Provider Assessment Encounter Date Assessment Date Assessment LastModified by Organization Details LastModified Time 08/02/2024 08/02/2024 Nature of diagno sis discussed with patient today. At this time symptoms are most consistent with SI joint pathology. Discussed the roles of anti-inflammatories therapy cortisone injections. Patient wished to pursue physical therapy. Prescription for such given. If no significant improvement may follow back up with our back department or can refer to [facility] for possibility of injection therapy. [email or web address] Not available 08/02/2024 12:08:44 12/03/2024 12/03/2024 Dx:left shoulder glenohumeral arthritis Interval History:74-year-old gentleman, no pain in full function, wanted to discuss what we would theoretically do if he were to tear the rotator cuff of his left shoulder. Again, fully functional with no pain. MRI done in 2022 shows no rotator cuff tear, focus of calcium. SocHx: nonsmoker, nondrinker Past Medical/Surgical History/Meds/Allerg ies reviewed and charted ROS: negative Physical Exam: afebrile, vital signs stable, in no apparent distress, oriented to person/place/time. Gait symmetric. Skin intact without erythema. Heart RRR Lungs: clear Abdomen soft, nontender. lleftSHOULDER: no redness, warmth, deformity. Range of motion full in all planes with no stiffness. Strength 5/5 all muscle groups. Apprehension negative. Impingement sign negative. Acromioclavicular joint nontender without irritability with cross body adduction. Neurovascular Exam wnl. Contralateral SHOULDER: no redness, warmth, deformity. Range of motion full in all planes with no stiffnes. Strength 5/5 all muscle groups. Apprehension negative. Impingement sign negative. Acromioclavicular joint nontender without irritability to cross body adduction. Neurovascular Exam wnl. New Studies: radiographs show tcfi-gw-ucjm nonproliferative osteoarthritis, no head migration, posterosuperior calcific deposit Impression:a symptomatic left shoulder arthritis Plan: 1.recommended nonoperative care, discussed potential options if symptoms develop, follow-up p.r.n. [email or web address] [facility] speech recognition propulsion motor and generator repairer software was used to create portions of this document. An attempt at proofreading has been made to minimize errors. Please call for corrections. [email or web address] Not available 12/03/2024 13:49:41 02/27/2025 02/27/2025 Patient seen und er general supervision of Dr. Rubi who was available but who did not see the patient. HPI: 74-year-old male seen today secondary to right long finger pain. Patient with a significant history of trigger digits about the bilateral hands reports he began having increasing discomfort about the long finger on the right. Reports the morning it quite sore although she quit triggering as of yet. Patient denies any recent falls or trauma. Denies numbness or tingling right upper extremity. Examination: 74-year-old male no acute distress. Examination right hand ecchymosis or erythema and warmth noted. Tenderness about the A1 jesus manuel region of the long finger appreciated, no triggering is elicited. Right upper extremity neurovascularly intact. Impression: Flexor tenosynovitis right long finger Plan: Treatment options are reviewed. At this time patient of the possibility of corticosteroid injection which he accepted. Injection performed today, posterior precautions reviewed. Follow-up concern is better on a p.r.n. basis. Role of surgical intervention were reviewed. [employer] speech recognition propulsion motor and generator repairer software was used to create portions of this document. An attempt at proofreading has been made to minimize errors. Please call for corrections. [email or web address] Not available 02/27/2025 17:48:36 Plan of Treatment Reminders Order Date Submit Date Provider Last Modified By Organization Details Last Modified Time Details Appointments None recorded. Lab None recorded. Referral occupationa l therapist referral - Diagnosis: Dupuytren Contracture LEFT SMALL FINGER Diagnosis Code 728.6 EVALUATE & Rx Pre op and 48 hour Post op Dupuytren Protocol 2024 025 [email or web address] Not available 5 11:17:45 Procedures None recorded. Surgeries fasciectomy , partial palmar with release of digit (SURG) 2024 025 [email or web address] Not available 5 11:17:45 Imaging XR, wrist, 2 view - 2v lt tmj, sinker puller, rm 117 2024 025 [email or web address] [facility], [address], [place], [address], 5 09:55:49 XR, shoulder, 2 or more view - 213 2024 025 [email or web address] [facility], [address], [address], [place], [address], 5 15:27:34 XR, lumbar spine, 2 view - 2V LUMBAR ROOM 211 2023 024 ROBBIE [facility], [address], [address], [place], [address], 4 11:49:47 Medication Orders None recorded. Patient TargetsNo targets recorded. Patient InstructionsNo instructions recorded. Reason for Referral Occupational Therapist Refer ral for Dupuytren's contracture of finger Diagnosis: Dupuytren Contracture LEFT SMALL FINGERDiagnosis Code 728.6EVALUATE & RxPre op and 48 hour Post op Dupuytren Protocol Referring Physician: Duncan Randolph, Orthopedic Surgery, Encounter Date: 04/22/2025 Results Created Date Observation Date Name Description Value Unit Range Abnormal Flag Note LastModifiedBy Organization Detail LastModifiedTime 07/20/20 24 10/15/2020 imagi ng/di agnos tic resul t No observ ation record ed. [email or web address] Not Available 06/23 04:34:34 08/30/01/23/2021 imagi ng/di agnos tic resul t No observ ation record ed. [email or web address] Not Available 06/23 04:35:02 07/20/20 24 10/15/2020 imagi ng/di agnos tic resul t No observ ation record ed. [email or web address] Not Available 06/23 04:35:04 07/20/20 24 10/15/2020 imagi ng/di agnos tic resul t No observ ation record ed. [email or web address] Not Available 06/23 04:35:05 07/20/20 24 11/15/2023 imagi ng/di agnos tic resul t No observ ation record ed. [email or web address] Not Available 06/23 04:36:04 08/02/20 24 08/02/2024 XR, lumba r spine , 2 view [email or web address]:/ [email or web address] ?Encry pted=s hAaTro YD8dLq bEUv6g %2BXZw aYqtaq 0bqfl% 2Fg9IQ a4ajBk vP9nXo QUaueC m3YtLR FvZl [place] [address] 2l1522 AC0Kqa n6GVqC nKiQtr MwF INTERFACE [facility] [address] [facility] [address] [address], [address], 08/02/2024 11:49:47 08/02/20 24 08/02/2024 XR, lumba r spine , 2 view [email or web address]:/ [email or web address] ?Encry pted=s hAaTro YD8dLq bEUv6g %2BXZw aYqtaq 0bqfl% 2Fg9IQ a4ajBk vP9nXo QUaueC m3YtLR FvZl [place] [address] 3a1055 AC0Kqa n6GVqC nKiQtr MwF INTERFACE [facility] [address], [place], [address], 08/02/2024 11:49:49 12/03/19 25 12/03/2024 XR, shoul wanda, 2 or more view [email or web address]:/ [email or web address] ?Encry pted=s hAaTro YD8dLq bEUv6g %2BXZw aYqtaq 0bqfl% 2Fg9IQ a4ajBk vP9nXo QUaueC m3YtLR FvZlgJ JJ8mAn HZtai3 6d0755 AC0Kqb 36GV6W nKiQtr MwF INTERFACE [facility] [address], [place], [address], 12/03/2024 11:12:24 12/03/19 25 12/03/2024 XR, shoul wanda, 2 or more view [email or web address] ?Encry pted=s hAaTro YD8dLq bEUv6g %2BXZw aYqtaq 0bqfl% 2Fg9IQ a4ajBk vP9nXo QUaueC m3YtLR FvZlgJ JJ8mAn HZtai3 2j3356 AC0Kqb 36GV6W nKiQtr MwF INTERFACE [facility] [address], [place], [address], 12/03/2024 11:12:26 07/05/20 25 07/05/2025 XR, wrist , 2 view [email or web address]:/ [email or web address] ?Encry pted=s hAaTro YD8dLq bEUv6g %2BXZw aYqtaq 0bqfl% 2Fg9IQ a4ajBk vP9nXo QUaueC m3YtLR FvZlgJ JJ8mAn HZtai3 2y1424 AC0Klb 3yEUqa iKiQtr MwF INTERFACE [facility] [address], [place], [address], 07/05/2025 09:40:10 07/05/20 25 07/05/2025 XR, wrist , 2 view [email or web address]:/ [email or web address] ?Encry pted=s hAaTro YD8dLq bEUv6g %2BXZw aYqtaq 0bqfl% 2Fg9IQ a4ajBk vP9nXo QUaueC m3YtLR FvZlgJ JJ8mAn HZtai3 6j1465 AC0Klb 3yEUqa iKiQtr MwF INTERFACE [facility] [address] [facility] [address], [place], [address], 07/05/2025 09:40:11 Result Notes Documentation Provider Name and Address Organization Details Recorded Time Xr, Lumbar Spine, 2 View : [email or web address] Encrypted=adTjSwpQE9xWblL Uv6g%6FORwrKvdea9tstz%2Fg 2HXd5nbGwyR2tUzQYhygAs4Mq VQLiPsdIKK1eHdAIicz76f652 0HY2Scvh1OVvWuHwPvqFlA Not Available [facility] 08/02/2024 11:49: 48 Xr, Lumbar Spine, 2 View : [email or web address] Encrypted=irWdFcxNT4rPjbV Uv6g%9YZOurVfhzc5ckpc%2Fg 7FSv1koCtpF7tRrBAblnGx8De WYSgBrtMGE5zMvTFhlt03j910 0HH3Qzzn6AIiUmPqTfpYoQ Not Available [facility] 08/02/2024 11:49: 50 Xr, Shoulder, 2 Or More View : [email or web address] Encrypted=esPyIpiZI8wTzfR Uv6g%5CYVpkAfduq3nxac%2Fg 3WMz8xqAljO9wTgILbulUz6Ve LSInKpaVOT3wHtUOlrj76t590 6EZ8Abk26MJ2HqNrYsjZcP Not Available [facility] 12/03/2024 11:12: 24 Xr, Shoulder, 2 Or More View : [email or web address] Encrypted=qtJaCpwAZ9zBpwZ Uv6g%8AQRwoLrskc0wvmm%2Fg 0AXl9sdVjhF4nRlXObltEp7Lh YBWsCknRTX5hZoIEban89p703 2AW6Ufg60ZB2XsLeAblDqM Not Available [facility] 12/03/2024 11:12: 26 Xr, Wrist, 2 View : [email or web address] Encrypted=kfGvPxwDO5mEtlD Uv6g%9RKSmmErfry0linf%2Fg 4RXs3ymItzD9iEnCXihtOq3Iw UELlZuvUZQ5qWgMGzle09n705 0CV9Grg7kWPglxPbIwgYaK Not Available [facility] 07/05/2025 09:40: 10 Xr, Wrist, 2 View : [email or web address] Encrypted=mzQrAchPQ0lDrnH Uv6g%2PVPerSqtid2yaqp%2Fg 5OZv8etAhhB6bWaDUtvkMi7Ou AFFoWvwTNB1eYhXZnxb76t615 5LU0Sqo3rQKxxeYlVaoCcG Not Available [facility] 07/05/2025 09:40: 12 Problems Name Problem SNOMED Code Status Onset Date Resolution Date Notes Provider Name and Address Organization Details Recorded Time No complaint s 511439806 Active Status: 'I'; Not Available [facility] 4 09:26:24 Trigger finger of left hand 155017780409 65255 Active 2018 Problem Code: M65.332; Problem Code Type: ICD-10; Status: 'A'; Not Available [facility] 4 11:58:50 Problem Notes None recorded. Procedures Surgical History Date Name Laterality Status Provider Name and Address Organization Details Recorded Time 5 JZCelestone Wrist Tendon Inj completed Duncan Randolph MD [address], [place], [address], [facility] 07/05/2025 12:18:44 5 JZTrigger Finger Injection completed Roosevelt Dela Cruz PA-C [address], [place], [address], [facility] 02/27/2025 17:47:09 4 Trigger Finger Kenalog Injection completed Duncan Randolph MD [address], [place], [address], [facility] 07/17/2024 16:24:32 4 Trigger Finger Kenalog Injection completed Duncan Randolph MD [address], [place], [address], [facility] 06/06/2024 11:35:05 Imaging Results None recorded. Procedure Notes None recorded. Medical Equipment None Reported. Allergies Allergen ID Allergen Name Allergen Category Reaction Reaction Severity Criticality Documentation Date Start Date Code Code System Note Provider Name and Address Organization Details Recorded Time 818341 Lamisil medicatio n Not available Not available Not available 06/05/2024 00512 6 RxNorm CRYSTAL LYNNE [facility] 10:12:57 Medications Name Sig Start Date Stop Date Status Note LastModified by Organization Details LastModified Time doxycycline hyclate 100 mg capsule TAKE 1 CAPSULE BY MOUTH TWICE DAILY FOR 5 DAYS WITH FOOD AND WATER. USE GOOD SUN PROTECTIO N WHILE TAKING MEDICATIO N active Not Available Not Available No t Available sildenafil 50 mg tablet TAKE 1 TABLET BY MOUTH EVERY DAY NEEDED FOR SEXUAL ACTIVITY 30 MINUTES - 4 HOURS BEFORE ACTIVITY active Not Available Not Available No t Available ofloxacin 0.3 % eye drops INSTILL 1 DROP IN BOTH EYES FOUR TIMES DAILY FOR 1 WEEK active Not Available Not Available No t Available triamcinolo ne acetonide 0.1 % topical cream active Not Available Not Available Not Available neomycin-po lymyxin-dex ameth 3.5 mg/mL-10,00 0 unit/mL-0.1 % eye drops active Not Available Not Available Not Available ketoconazol e 2 % topical cream APPLY TO RASH IN THE SKIN FOLDS ONCE OR TWICE DAILY NEEDED active Not Available Not Available No t Available fluticasone propionate 50 mcg/actuati on nasal spray,suspe nsion SHAKE LIQUID AND USE 2 SPRAYS IN NOSTRILS TWICE DAILY active Not Available Not Available No t Available amoxicillin 875 mg-tori spence clavulanate 125 mg tablet TAKE 1 TABLET BY MOUTH EVERY 12 HOURS FOR 10 DAYS active Not Available Not Available No t Available oxycodone HCl-oxycodo ne-ASA 1 every 4 - [address] WHILE TAKING THIS MEDICATIO N 11/30 completed Statu s: 'Disc ontin ued'; Not Available Not Available Not Available Vitals Date Recorded Body height Provider Name an d Address Organization Details Last Updated DateTime 12/03/2024 180.34 cm FELICIA QUEVEDO [facility] 12/03/2024 10:50:17 Date Recorded Body height Body mass index (BMI) Body weight Provider Name and Address Organization Details Last Updated DateTime 02/27/2025 180.34 cm 23 kg/m2 34424.74 g THAO CHANDRA [facility] 02/27/2025 16:32:14 Date Recorded Body height Body mass index (BMI) Body weight Provider Name and Address Organization Details Last Updated DateTime 04/22/2025 180.34 cm 23 kg/m2 80325.74 g CRYSTAL LYNNE [facility] 04/22/2025 10:12:25 Date Recorded Body height Body mass index (BMI) Body weight Provider Name and Address Organization Details Last Updated DateTime 07/05/2025 180.34 cm 23 kg/m2 77547.74 g CRYSTAL LYNNE [facility] 07/05/2025 09:30:08 Date Recorded Body height Body mass index (BMI) Body weight Provider Name and Address Organization Details Last Updated DateTime 08/02/2024 180.34 cm 23 kg/m2 25223.74 g Missy Alston [facility] 08/02/2024 11:35:40 Social History None recorded. Functional Status None recorded. Mental Status None recorded. Family History Nothing Reported. Medical History Condition Response Allergies/Hayfever N Coronary Artery Disease N Breathing or lung disorders N Anxiety/Depression N Emphysema N Nerve Disorders N Thyroid Problems N COPD N Pacemaker N Kidney/Bladder Problems N Anemia N Vascular Disease N Heart Trouble N Heart Attack (IA) N Gastrointestinal Disease N Cholesterol N Diabetes N Autoimmune disease N Inflammatory Joint disease N Bleeding Disorder N Orthotics N Seizures/Epilepsy N Arthritis N Blood Clot N AIDS/HIV N Congestive Heart Failure (CHF) N Acid Reflux (GERD) N Cancer N Stroke N Asthma N Circulation Problems N Peripheral Vascular Disease N Sleep Apnea N Hepatitis N Heart Disease N Rheumatoid Arthritis N Pulmonary Embolism N Arrhythmia N Headaches N Fibromyalgia N Hypertension N Osteoporosis N Past Encounters Encounter ID Performer Location Encounter Start Date Encounter Closed Date Diagnosis/Indication Diagnosis SNOMED-CT Code Diagnosis ICD10 Code Diagnosis IMO Codes Diagnosis Note [id number] MD Jean Claude Leigh [address] [place] [address] 06/05/2024 09:47:47 06/20/2024 14:39:00 Flexor tenosynovitis of finger 197421789 M65.849 Dupuytren' s disease of palm of left hand 3441720454 0970318 M72.0 [id number] MD Jean Claude Leigh [address] [place] [address] 07/13/2024 09:17:26 08/06/2024 12:14:27 Trigger finger of left hand 4805275208 2745067 M65.30 [id number] XIMENA Keen [address] [place] [address] 08/02/2024 10:58:35 08/23/2024 15:09:41 Low back pain 598918273 M54.50 [id number] MD MYRTLE Chávez [address] [place] [address] 12/03/2024 10:07:11 12/13/2024 15:27:34 Pain of left shoulder joint 1143449259 5271820 M25.512 [id number] XIMENA Bird [address] [place] [address] 02/27/2025 16:15:45 03/11/2025 07:30:48 Triggering of digit 856621737 M65.182 [id number] MD MYRTLE Leigh [address] [place] [address] 04/22/2025 09:55:12 05/06/2025 15:01:55 Dupuytren's contracture of finger 160204300 M72.0 [id number] MD MYRTLE Leigh [address] [place] [address] 07/05/2025 08:58:48 07/16/2025 08:54:47 Pain of left wrist 8479214239 35216 M25.532 596614 Tenosynovi tis of left radial styloid 7266940438 8443694 M65.4 [id number] Health Concerns Section Related Observation LastModified by Organization Detai ls LastModified Time None Recorded Concern Status LastModified by Organization Details LastModified Time None Recorded Advance Directives Directive None Recorded Payers Insurance Date Sequence Insurance Name Policy Number Policy Branch Covered Member ID Branch Member ID Guarantor Name 07/16/2025 1 [facility]IC[facility] PPO BLUE (MEDICARE REPLACEMENT PPO) [id number] Suhas Lund [id number] Suhas [facility] Notes Date Note Type Note Provider Name and Address Organization Details Recorded Time 08/02/2024 text/html I am seeing the patient today under the supervision of Dr. Powell who was available but who did not see the patient. Patient was in for evaluation of bilateral hip pain. States the left has been worse than the right in the past. This has been going on for a number of months. Notes that over the winter when playing hockey and was doing a lot of skating at that time. Start developing pain discomfort in the posterior aspect of that hip. Difficulty with hip flexion activity as well as flexion at the waist. Denies any radiating symptoms. Does have history of degenerative disc disease L4-L5 with surgery done for such a number of years ago. Ephraim Felder PA-C [address], [place], [address], [facility] 08/02/2024 12:09:09 04/22/2025 text/html ROS as noted in the HPI Diagnosis: 1. Dupuytren's disease left small finger 2. Flexor tenosynovitis multiple digits bilateral hands The patient presents at his request. He would like to discuss his contracture of his right small finger which appears to be worsening. Past family, medical, social history and review of systems has been reviewed, updated and is located in the patient s chart. Examination: Healthy appearing patient in no apparent distress. Alert and oriented. Pretendinous, spiral and retrovascular cords to the right small finger with significant contractures of the PIP and DIP joints. He has excellent digital flexion. Provocative testing of wrist and digits reveal no instability. No atrophy in either upper extremity. Brisk capillary refill in all digits Plan: The patient and I discussed the situation at length. I described the nature of Dupuytren's disease and the treatment options. We discussed the nature of surgical intervention and its potential risks including infection, injury to blood vessels, tendons, nerves, incomplete relief of the contacture, stiffness of the fingers, potential need for skin graft and recurrence of the Dupuytren's. All questions were answered. The patient will consider a partial palmar fasciectomy of his left small finger. He will contact me if he has questions or if he wishes to proceed with treatment. Duncan Randolph MD [address] [place] [address] [address], [place], [address], [facility] 04/22/2025 11:12:14 07/05/2025 text/html ROS as noted in the HPI Diagnosis: 1. De Quervain's tenosynovitis left wrist 2. Dupuytren's disease left small finger 3. Wartenberg syndrome left wrist The patient presents at his request. He has had several months of severe radial sided wrist pain on the left which developed after an aggressive day of weightlifting. The pain is sharp and severe. He also has numbness over the dorsal aspect of his thumb. Past family, medical, social history and review of systems has been reviewed, updated and is located in the patient s chart. Examination: Healthy appearing patient in no apparent distress. Alert and oriented. Soft tissue swelling radial aspect left wrist. Markedly positive Merlin's test. Negative first [facility] grind and compression test. Positive Tinel's sign distal radial sensory nerve left wrist. No atrophy in either upper extremity. 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 Plan: I described for the patient the nature of de Quervain's tenosynovitis and recommended corticosteroid injection therapy. We discussed the potential concerns of depigmentation of his skin and subcutaneous fat atrophy. He tolerated his injection well. Duncan Randolph MD [address] [place], [place] [address] [address], [place], [address], [facility] 07/05/2025 12:19:09
--- OUTSIDE RECORDS SUMMARY | 2025-09-06 16:47 | XMS_ITS | Clinical Summary ---
Author Organization [facility] Address [address] [place] [address] Care Team Providers Care Shirt Sewer Name Role Phone Unavailable Primary Care Provider Unavailabl e Social History Tobacco Use Types Packs/Day Years Used Date Smoking Tobacco: Never Assessed Sex and Gender Information Value Date Recorded Sex Assigned at Not on file Legal Sex Male 3:04 PM EDT Gender Identity Not on file Sexual Orientation Not on file Plan of Treatment Health Maintenance Due Date Last Done Comments Advance Care Planning 1950 Hepatitis C Virus Screening 1950 DTaP/Tdap/Td Vaccines (1 - Tdap) 1970 Pneumococcal Vaccines 50+ (1 of 1 - PCV) 2001 Zoster (Shingles) Vaccine (1 of 2) 2001 COVID-19 Vaccine ( - 2023-2 5 season) 2025 RSV Vaccine 50 years and old er and Patients (1 - 1-dose 75+ series) 2026 Hepatitis B Vaccines Aged Out No long er eligible based on patient's age to complete this topic
--- OUTSIDE RECORDS SUMMARY | 2025-09-06 16:48 | XMS_ITS | Clinical Summary ---
Author Organization [facility] Address [address] [place] [address] Phone Care Team Providers Care Patent Prosecution Paralegal Name Role Phone Efrain Hernandez MD Primary Care Provider [phone] Allergies Active Allergy Reactions Criticality Noted Date [...] 2001 ABDOMINAL AORTIC ANEURYSM (AAA) SCREENING 2016 INFLUENZA VACCINE (#1) 2025 , 09/16/2022, 09/16/2021, Additional history exists COVID-19 VACCINE (3 - season) 2025 03/04/2021, 02/11/2021 RSV VACCINE (1 - 1-dose [...] NET FULL MEDICARE PART A & [facility] [place] MED[place] BLUE REPLACEMENT HEALTH SAFETY NET FULL MEDICARE PART A & B [facility] [place]OSS [place] REPLACEMENT HEALTH SAFETY NET FULL MEDICARE PART A & [place] REPLACEMENT HEALTH SAFETY NET FULL MEDICARE PART A & [place] REPLACEMENT HEALTH SAFETY NET FULL MEDICARE PART A & B [facility] [place] REPLACEMENT HEALTH SAFETY NET FULL MEDICARE PART A & B [facility] [place] REPLACEMENT HEALTH SAFETY NET FULL MEDICARE PART A & [facility] P[facility] BLUE REPLACEMENT [facility] FULL MEDICARE PART A & B [facility] MEDICARE PPO BLUE REPLACEMENT HEALTH SAFETY NET FULL MEDICARE PART A & B [facility] Care Teams Patent Prosecution Paralegal Relationship Specialty Start Date End Date Efrain Hernandez MD [address] [place] [address] [place] [address] PCP - General Internal Medicine 07/24/14 Additional Source Comments The information contained in this document represents components of the legal health record. It is not the complete legal health record.[facility]
== END 2025-09-06 15:37 | disposition home or self-care (01) ==
LOC: HO.HMCH 14:14
PROVIDERS: PCP Internal Medicine; Visit Provider Internal Medicine
DX: Z23 Encounter for immunization (principal); K52.9 Noninfective gastroenteritis and colitis, unspecified

== ENCOUNTER → 2025-09-06 14:14 | Outpatient (BNVA) | payer MEDICARE, SELFPAY | PROVIDERS: PCP Internal Medicine; Visit Provider Internal Medicine | DX: Z23 Encounter for immunization (principal); K52.9 Noninfective gastroenteritis and colitis, unspecified | CPT/HCPCS: 90471; 90656; 99212 ==

== ENCOUNTER 2025-09-07 11:14 | Outpatient (REF) | payer MEDICARE, SELFPAY ==
--- OUTSIDE RECORDS SUMMARY | 2025-09-07 11:16 | XMS_ITS | Data Portability ---
Author Organization [facility], All[facility] Address [address] [place] [id number] Care Team Providers Care Able Bodied Seaman Name Role Phone TOLU GIOVANA Primary Care Provider [phone] Assessment Encounter Date Assessment Date Assessment LastModified by Organization Details LastModified Time 05/06/2025 05/06/2025 Patient reports 45 days of frontal sinus pressure predominantly on the right side. He had a recent dental scan that did not show any disease according to the patient. Nasal endoscopy shows mild swelling in the middle meatus bilaterally. I do not see any purulent drainage have suggested using fluticasone 2 sprays each nostril twice daily and a course of antibiotics. Dental scan showed maxillary sinus thickening left greater than right but no air-fluid levels. If symptoms do not resolve we will consider a formal CT of the sinuses. He will message me in 1 month lee ann Not available 05/06/2025 10:48:33 06/12/2025 06/12/2025 1. Malignant Melanoma of the skin The previous excision per patient has adequately treated the melanoma. Continued observation is necessary to detect any signs of recurrence at the cheek site. 2. Basal Cell Carcinoma Surgical removal of basal cell carcinoma near the chin is planned and he will follow-up with the Mohs surgery team 3. Deviated Nasal Septum Patient has septal deviation with spur to the right side. This is likely been present for a long time. We discussed that his nasal obstruction symptom score was 30 out of 100. We discussed that I do not think that fixing the septum will solve his intermittent facial pain. We could consider septoplasty and turbinate reduction for his breathing issues but again they do not appear to be that severe. He will continue with saline irrigations and fluticasone and contact the office of any additional concerns in the future [email or web address] Not available 06/12/2025 16:06:03 Plan of Treatment Reminders Order Date Submit Date Provider Last Modified By Organization Details Last Modified Time Details Appointments None recorded. Lab None recorded. Referral None recorded. Procedures None recorded. Surgeries None recorded. Imaging None recorded. Medication Orders amoxicillin 875 mg-potassiu m clavulanate 125 mg tablet 2024 [id number], [address], [place], [phone], 15:33:31 fluticasone propionate 50 mcg/actuati on nasal spray,suspe nsion 2024 [facility] #[id number], [address], [place], [phone], 15:33:20 Patient TargetsNo targets recorded. Patient Instructions Encounter Date Encounter Id Patient Instructions Last Modified By Organization Details Last Modified Time 06/12/2025 [id number] Please note: Parts of this encounter note have been generated by AI based on audio conversation. Patient consent was required prior to utilizing this technology. Content review was required prior to finalizing the note. lee ann Not available 06/12/2025 16:03:27 Reason for Referral None Reported. Results Created Date Observation Date Name Description Value Unit Range Abnormal Flag Note LastModifiedBy Organization Detail LastModifiedTime 05/29/20 25 05/29/2025 CT, sinus es, w/o contr ast No observ ation record ed. [facility] [address] [address], [place], [address], 05/29/2025 12:59:14 Result Notes None recorded. Problems Name Problem SNOMED Code Status Onset Date Resolution Date Notes Provider Name and Address Organization Details Recorded Time Allergic rhinitis 52247877 Active 2018 Perennial allergic rhinitis; Note: Date Diagnosed: 01/10/2019 8:56 AM (J30.89) Not Available [facility] 4 03:27:22 Migraine without aura, not refractor y 996193315 Active 2018 Migraine without aura, not intractabl e, without status migrainosu s; Note: Date Diagnosed: 01/10/2019 8:56 AM (G43.009) Not Available [facility] 4 03:27:22 Pain in face 11816158 Active 2024 BALDO ROSS MD [address], [place], [address] , [place] [facility] 5 09:36:34 Nasal congestio n 15715798 Active 2024 BALDO ROSS MD [address], [place], [address] , [place] [facility] 5 09:36:40 Acute frontal sinusitis 95136304 Active 2024 BAL[facility] ROSS MD [address] [facility] [place], [place], [address] , [place] [facility] 5 09:36:55 Chronic rhinitis 42047179 Active 2024 BALDO ROSS MD [address] [facility] [place], [place], [address] , [place] [facility] 5 08:25:50 Deviated nasal septum 453070756 Active 2024 BALDO ROSS MD [address], [place], [address] , [place] [facility] 5 16:03:23 Malignant melanoma of face Active 2024 BALDO ROSS MD [address] [facility] [address], [place], [address] , [place] [facility] 5 16:04:43 Problem Notes None recorded. Procedures Surgical History Date Name Laterality Status Provider Name and Address Organization Details Recorded Time 05/06/20 JMSNasal/Sinus Endoscopy completed BALDO BATRES MD [address] [facility], [place], [address], [place] [facility] 05/06/2025 09:39:53 arthroscopic repair of rotator cuff completed Ingris Robles [place] [facility] 05/06/2025 09:11:13 release of trigger thumb completed Ingris Robles [facility] 05/06/2025 09:11:22 Imaging Results None recorded. Procedure Notes None recorded. Medical Equipment None Reported. Allergies Allergen ID Allergen Name Allergen Category Reaction Reaction Severity Criticality Documentation Date Start Date Code Code System Note Provider Name and Address Organization Details Recorded Time 740034 Lamisil medicatio n hives Not available Not available 04/03/2024 78015 6 RxNorm React ion: Hives ; Not Available [facility] 01:22:51 Medications Name Sig Start Date Stop Date Status Note LastModified by Organization Details LastModified Time sildenafil 50 mg tablet TAKE 1 TABLET BY MOUTH EVERY DAY NEEDED FOR SEXUAL ACTIVITY 30 MINUTES - 4 HOURS BEFORE ACTIVITY 06/12 completed Not Available Not Available Not Available Vitamin D2 1,250 mcg (50,000 unit) capsule Take by oral route. active Not Available Not Available No t Available fluticasone propionate 50 mcg/actuati on nasal spray,suspe nsion SHAKE LIQUID AND USE 2 SPRAYS IN NOSTRILS TWICE DAILY 06/12 completed Not Available Not Available Not Available amoxicillin 875 mg-potassiu m clavulanate 125 mg tablet TAKE 1 TABLET BY MOUTH EVERY 12 HOURS FOR 10 DAYS 06/12 completed Not Available Not Available Not Available Vitals Date Recorded Body height Body mass index (BMI) Body weight Provider Name and Address Organization Details Last Updated DateTime 05/06/2025 180.34 cm 23.4 kg/m2 30998.[address] [facility] 05/06/2025 09:10:13 Date Recorded Body height Body mass index (BMI) Body weight Provider Name and Address Organization Details Last Updated DateTime 06/12/2025 180.34 cm 22.6 kg/m2 46981.[address] [facility] 06/12/2025 15:32:59 Social History None recorded. Functional Status None recorded. Mental Status None recorded. Family History Nothing Reported Notes:- Father: History of i nvasive surgical intervention for deviated nasal septum. Medical History Condition Response Migraines Y Past Encounters Encounter ID Performer Location Encounter Start Date Encounter Closed Date Diagnosis/Indication Diagnosis SNOMED-CT Code Diagnosis ICD10 Code Diagnosis IMO Codes Diagnosis Note [id number] BALDO ROSS MD [facility] [address] [address] 05/06/2025 08:41:32 05/06/2025 09:43:23 Pain in face 03239740 R51.9 95468 Nasal congestion 4433920 0 R09.81 20208 Acute fron hans sinusitis 76840265 J01.10 08522395 [id number] BALDO ROSS MD [facility] [address] [address] 06/12/2025 15:11:50 06/12/2025 16:04:02 Allergic rhinitis 33674814 J30.89 Deviated nasal septum 12 5337371 J34.2 131420 Malignant melanoma of face 7299740001 C43.30 59521212 Followed by dermatolog y Health Concerns Section Related Observation LastModified by Organization Detai ls LastModified Time None Recorded Concern Status LastModified by Organization Details LastModified Time None Recorded Advance Directives Directive None Recorded Payers Insurance Date Sequence Insurance Name Policy Number Policy Branch Covered Member ID Branch Member ID Guarantor Name 05/06/2025 1 MEDICARE B-CT: [facility] [id number] [facility] 06/12/2025 1 [facility]: MEDICARE PPO BLUE (MEDICARE REPLACEMENT PPO) [id number] [facility] [id number] [facility] 05/06/2025 1 MEDICARE B-CT: [facility] [id number] [facility] Notes Date Note Type Note Provider Name and Address Organization Details Recorded Time 05/06/2025 text/html 45 days of facial pain in the frontal regions. 8 years ago he had dental implant. Chronic nasal congestion, PND and sinus pressure. Recent dx of melanoma right cheek and BCCA along right jawline. Recent dental scan reportedly normalSnot 22Nose 30 BALDO BATRES MD 100 [facility],[address], [address], [place] [facility] 05/06/2025 10:48:36 06/12/2025 text/html The patient is a 74-year-old male presenting with concerns following a diagnosis of malignant melanoma on the right cheek. Surgical excision was performed approximately 10 days ago, involving a large resection sufficing complete removal, suggested by the negative margin status. The patient believed a more conservative technique, such as Mohs, was not applicable due to the lesion's aggressive potential. The patient also expresses long-standing issues with nasal obstruction primarily on the right side. CT imaging ruled out sinus disorder but identified a deviated nasal septum directing to the right side. Although detailed structural abnormalities such as a bone spur were noted, there was no impingement identified. The patient has reported fluctuating discomfort that began predominantly on the right side of the forehead and has transited toward the left, possibly exacerbated by recent stress. The nasal obstruction might contribute to impaired airflow, despite being managed somewhat effectively with Flonase. BALDO BATRES MD 100 [facility], [place], [address], [place] [facility] 06/12/2025 16:07:26
--- OUTSIDE RECORDS SUMMARY | 2025-09-07 11:16 | XMS_ITS | Clinical Summary ---
Author Organization [facility] Address [address] [place] [address] Care Team Providers Care Application Support Name Role Phone Unavailable Primary Care Provider [...]
--- OUTSIDE RECORDS SUMMARY | 2025-09-07 11:16 | XMS_ITS | Clinical Summary ---
Author Organization [facility] Address [address] [place] [address] Phone Care Team Providers Care Coil Connector Repairer Name Role Phone Efrain Hernandez MD Primary Care Provider [phone] Allergies Active Allergy Reactions Criticality Noted Date [...] NET FULL MEDICARE PART A & [facility] [place] [place]UE REPLACEMENT HEALTH SAFETY NET FULL MEDICARE PART A & B [facility] [place] RE[place]ACEMENT HEALTH SAFETY NET FULL MEDICARE PART A & [place] RE[place]ACEMENT HEALTH SAFETY [place] FULL MEDICARE PART A [place]ACEMENT HEALTH SAFETY NET FULL MEDICARE PART A & [facility] [place] [place] RE[place]ACEMENT HEALTH SAFETY NET FULL MEDICARE PART A & B [facility] [place] RE[place]ACEMENT HEALTH SAFETY NET FULL MEDICARE PART A & [facility] PPO [facility]UE [facility] FULL MEDICARE PART A & B [facility] MEDICARE PPO BLUE REPLACEMENT HEALTH SAFETY NET FULL MEDICARE PART A & B [facility] Care Teams Coil Connector Repairer Relationship Specialty Start Date End Date Efrain Hernandez MD [address] [place] [address] [place] [address] PCP - General Internal Medicine 07/24/14 Additional Source Comments The information contained in this document represents components of the legal health record. It is not the complete legal health record.[facility]
--- OUTSIDE RECORDS SUMMARY | 2025-09-07 11:16 | XMS_ITS | Data Portability ---
Author Organization [facility], [facility] Address [address] [place] [address] Care Team Providers Care Cake Wrapper Name Role Phone GIOVANA MOTLEY Primary Care [...] our back department or can refer to [facility] for possibility of injection [...] Neurovascular Exam wnl. 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 [facility] speech recognition payment manager software was used to create portions of [...] basis. Role of surgical intervention were reviewed. [employer] speech recognition payment manager software was used to create portions of [...] wrist, 2 view - 2v lt tmj, nonprofit financial controller, rm 117 2024 025 [email or web address] [facility], [address], [place], [address], 5 09:55:49 XR, shoulder, 2 or more view - 213 2024 025 [email or web address] [facility], [address], [address], [place], [address], 5 15:27:34 XR, lumbar spine, 2 view - 2V LUMBAR ROOM 211 2023 024 [facility], [address], [place], [address], 4 11:49:47 Medication Orders None recorded. Patient [...] 0bqfl% 2Fg9IQ a4ajBk vP9nXo QUaueC m3YtLR FvZl [place] [address] 5y0331 AC0Kqa n6GVqC nKiQtr MwF INTERFACE [facility] [address] [facility] [address] [address], [address], 08/02/2024 11:49:47 08/02/20 24 08/02/2024 XR, lumba r spine , 2 view [email or web address]:/ [email or web address] ?Encry pted=s hAaTro YD8dLq bEUv6g %2BXZw aYqtaq 0bqfl% 2Fg9IQ a4ajBk vP9nXo QUaueC m3YtLR FvZl [place] [address] 4p3126 AC0Kqa n6GVqC nKiQtr MwF INTERFACE [facility] [address], [place], [address], 08/02/2024 11:49:49 12/03/19 25 12/03/2024 XR, shoul wanda, 2 or more view http:/ [email or web address] ?Encry pted=s hAaTro YD8dLq bEUv6g %2BXZw aYqtaq 0bqfl% 2Fg9IQ a4ajBk vP9nXo QUaueC m3YtLR FvZlgJ JJ8mAn HZtai3 3d1975 AC0Kqb 36GV6W nKiQtr MwF INTERFACE [facility] [address], [place], [address], 12/03/2024 11:12:24 12/03/19 25 12/03/2024 XR, shoul wanda, 2 or more view http:/ [email or web address] ?Encry pted=s hAaTro YD8dLq bEUv6g %2BXZw aYqtaq 0bqfl% 2Fg9IQ a4ajBk vP9nXo QUaueC m3YtLR FvZlgJ JJ8mAn HZtai3 7y6396 AC0Kqb 36GV6W nKiQtr MwF INTERFACE [facility] [address], [place], [address], 12/03/2024 11:12:26 07/05/20 25 07/05/2025 XR, wrist , 2 view [email or web address]:/ [email or web address] ?Encry pted=s hAaTro YD8dLq bEUv6g %2BXZw aYqtaq 0bqfl% 2Fg9IQ a4ajBk vP9nXo QUaueC m3YtLR FvZlgJ JJ8mAn HZtai3 4h9736 AC0Klb 3yEUqa iKiQtr MwF INTERFACE [facility] [address], [place], [address], 07/05/2025 09:40:10 07/05/20 25 07/05/2025 XR, wrist , 2 view http:/ [email or web address] ?Encry pted=s hAaTro YD8dLq bEUv6g %2BXZw aYqtaq 0bqfl% 2Fg9IQ a4ajBk vP9nXo QUaueC m3YtLR FvZlgJ JJ8mAn HZtai3 3j0757 AC0Klb 3yEUqa iKiQtr MwF INTERFACE [facility] [address] [facility] [address], [place], [address], 07/05/2025 09:40:11 Result Notes Documentation Provider Name and Address Organization Details Recorded Time Xr, Lumbar Spine, 2 View : [email or web address] Encrypted=ufKxOfcNT1fJueW Uv6g%8BUAtqNouen9vlte%2Fg 3TNl6guDxeJ0oEtLCbhoHt7Zg SQOqZujGFX4hXeYEtsy48b571 1SK0Zgyw1LPeIlRgUkpAoE Not Available [facility] 08/02/2024 11:49: 48 Xr, Lumbar Spine, 2 View : [email or web address] Encrypted=hrIaDpsCH6zOnnV Uv6g%8NXNxxCrdeo1eatg%2Fg 4PJy8csLjdB4tIvZUbqcBa6Op SBHwKxjJIU2jZgRSpto26d240 4VL6Eoef3NLyRfTnKczKvZ Not Available [facility] 08/02/2024 11:49: 50 Xr, Shoulder, 2 Or More View : [email or web address] Encrypted=zzVcIrrFM5oOrcL Uv6g%8TJMxoDrdcs8gzor%2Fg 0IQa6qpZfkH5aTeTCagrYo1Gn LMCvHttYRB2uAkVOqmh17z492 1KN4Qhw47RR6McQdVsdJgZ Not Available [facility] 12/03/2024 11:12: 24 Xr, Shoulder, 2 Or More View : [email or web address]? Encrypted=slVeLecEI3zTsiX Uv6g%7NXOjsCzjpf8uvhl%2Fg 6OOi9ydZgdX7kTjFZfmuFc0Fz YPUuGogYCC9bIoXXcow27n254 2FO5Qjc18EW9WrVpWbpKvX Not Available [facility] 12/03/2024 11:12: 26 Xr, Wrist, 2 View : [email or web address] Encrypted=fiFoKoiTV7pUxlF Uv6g%1FRHwiBcsyn9acme%2Fg 3QKw0mwTacG0oSkWZlaePx8Kx JWSjZvaGQT4bZuXCksd97x622 9WH3Hcw8jGQcepYnOhhNbW Not Available [facility] 07/05/2025 09:40: 10 Xr, Wrist, 2 View : [email or web address] Encrypted=tnMcBtuYP7cFhgO Uv6g%2DTRivQdqdi8eyib%2Fg 8GKf3ixCalW6yVdPLafpYi9Xr PZKxWfnXDQ9jVgPWmob89a542 0BL1Wcd7rOMsaiNoJciRfB Not Available [facility] 07/05/2025 09:40: 12 Problems Name Problem SNOMED Code Status Onset Date Resolution Date Notes Provider Name and Address Organization Details Recorded Time No complaint s 865429717 Active Status: 'I'; Not Available [facility] 4 09:26:24 Trigger finger of left hand [id number] 87013 Active 2018 Problem Code: M65.332; Problem Code Type: ICD-10; Status: 'A'; Not Available [facility] 4 11:58:50 Problem Notes None recorded. Procedures Surgical History Date Name Laterality Status Provider Name and Address Organization Details Recorded Time 5 JZCelestone Wrist Tendon Inj completed Duncan Randolph MD [address], [place], [address], [facility] 07/05/2025 12:18:44 5 JZTrigger Finger Injection completed Roosevelt Dela Cruz PA-C [address], [place], [address], [facility] 02/27/2025 17:47:09 4 Trigger Finger Kenalog Injection completed Duncan Randolph MD [address], [place], [address], [facility] 07/17/2024 16:24:32 4 Trigger Finger Kenalog Injection completed Duncan Randolph MD [address], [place], [address], [facility] 06/06/2024 11:35:05 Imaging Results None recorded. Procedure Notes None recorded. Medical Equipment None Reported. Allergies Allergen ID Allergen Name Allergen Category Reaction Reaction Severity Criticality Documentation Date Start Date Code Code System Note Provider Name and Address Organization Details Recorded Time 910903 Lamisil medicatio n Not available Not available Not available 06/05/2024 53041 6 RxNorm CRYSTAL LYNNE [facility] 10:12:57 Medications Name Sig Start Date Stop [...] Updated DateTime 12/03/2024 180.34 cm FELICIA QUEVEDO [facility] 12/03/2024 10:50:17 Date Recorded Body height Body mass index (BMI) Body weight Provider Name and Address Organization Details Last Updated DateTime 02/27/2025 180.34 cm 23 kg/m2 40882.74 g THAO CHANDRA [facility] 02/27/2025 16:32:14 Date Recorded Body height Body mass index (BMI) Body weight Provider Name and Address Organization Details Last Updated DateTime 04/22/2025 180.34 cm 23 kg/m2 72992.74 g CRYSTAL LYNNE [facility] 04/22/2025 10:12:25 Date Recorded Body height Body mass index (BMI) Body weight Provider Name and Address Organization Details Last Updated DateTime 07/05/2025 180.34 cm 23 kg/m2 58950.74 g CRYSTAL LYNNE [facility] 07/05/2025 09:30:08 Date Recorded Body height Body mass index (BMI) Body weight Provider Name and Address Organization Details Last Updated DateTime 08/02/2024 180.34 cm 23 kg/m2 09403.74 g Missy Alston [facility] 08/02/2024 11:35:40 Social [...] Disease N Heart Trouble N Heart Attack (OR) N Gastrointestinal Disease N Cholesterol N Diabetes [...] ICD10 Code Diagnosis IMO Codes Diagnosis Note [id number] MD Jean Claude Leigh [address] [place] [address] 06/05/2024 09:47:47 06/20/2024 14:39:00 Flexor tenosynovitis of finger 374072677 M65.849 Dupuytren' s disease of palm of left hand 7664969478 5529359 M72.0 [id number] MD Jean Claude Leigh [address] [place] [address] 07/13/2024 09:17:26 08/06/2024 12:14:27 Trigger finger of left hand 1676587634 0739996 M65.30 [id number] XIMENA Keen [address] [place] [address] 08/02/2024 10:58:35 08/23/2024 15:09:41 Low back pain 882020508 M54.50 [id number] MD MYRTLE Chávez [address] [place] [address] 12/03/2024 10:07:11 12/13/2024 15:27:34 Pain of left shoulder joint 3125870833 6695010 M25.512 164741 [id number] XIMENA Bird [address] [place] [address] 02/27/2025 16:15:45 03/11/2025 07:30:48 Triggering of digit 217547936 M65.411 0438680 [id number] MD MYRTLE Leigh Jean Claude [address] [place] [address] 04/22/2025 09:55:12 05/06/2025 15:01:55 Dupuytren's contracture of finger 921333940 M72.0 [id number] MD MYRTLE Leigh Jean Claude [address] [place] [address] 07/05/2025 08:58:48 07/16/2025 08:54:47 Pain of left wrist 3315914030 07980 M25.532 537294 Tenosynovi tis of left radial styloid 5301535139 1496266 M65.4 [id number] Health Concerns Section Related Observation LastModified by Organization Detai ls LastModified Time None Recorded Concern Status LastModified by Organization Details LastModified Time None Recorded Advance Directives Directive None Recorded Payers Insurance Date Sequence Insurance Name Policy Number Policy Branch Covered Member ID Branch Member ID Guarantor Name 07/16/2025 1 [facility] MEDICARE PPO BLUE (MEDICARE REPLACEMENT PPO) [id number] Suhas Lund [id number] Suhas Ricky [facility] Notes Date Note Type Note Provider Name [...] PA-C [address], [place], [address], [facility] 08/02/2024 12:09:09 04/22/2025 text/html [...] to proceed with treatment. 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 Plan: I described for the patient the nature of de Quervain's tenosynovitis and recommended corticosteroid injection therapy. We discussed the potential concerns of depigmentation of his skin and subcutaneous fat atrophy. He tolerated his injection well. Duncan Randolph MD [address] [place], [place] [address] [address], [place], [address], [facility] 07/05/2025 12:19:09
[2025-09-07 12:31] LABS: Leukocytes Stool Qualitative NEGATIVE (NEGATIVE)
== END 2025-09-07 11:15 | disposition home or self-care (01) ==
LOC: HO.LNP 11:14
PROVIDERS: Visit Provider Internal Medicine
DX: K52.9 Noninfective gastroenteritis and colitis, unspecified (principal)
CPT/HCPCS: 87177; 87209; 87329; 89055